=== PATIENT | female | born 1960 | race Caucasian/White ===

== ENCOUNTER 2018-10-17 16:41 | Inpatient (IN) | payer MEDICAID ==
[~2018-10-17] VITALS: Ht 154.9 cm; Wt 63.2 kg
--- NOTE | 2018-10-17 18:30 | NUR ---
PATIENTS JERRELL FOR CONTACT # LUDA IRIZARRY [phone]
[2018-10-17 18:45] LABS: BASOPHILS # (AUTO) 0.1 X10'3 (0-0.2); BASOPHILS % (AUTO) 0.9 % (0-1); EOSINOPHILS # (AUTO) 0.1 X10'3 (0-0.9); EOSINOPHILS % (AUTO) 1.8 % (0-6); HEMATOCRIT 37.5 % (35.0-45.0); HEMOGLOBIN 11.8 g/dl (12.0-16.0); LYMPHOCYTES # (AUTO) 0.7 X10'3 (1.1-4.8); LYMPHOCYTES % (AUTO) 8.8 % (21-51); MEAN CORPUSCULAR HEMOGLOBIN 28.4 PG (27.0-31.0); MEAN CORPUSCULAR HGB CONC 31.5 g/dL (33.0-36.5); MEAN CORPUSCULAR VOLUME 90.3 FL (78-98); MEAN PLATELET VOLUME 8.7 FL (7.4-10.4); MONOCYTES # (AUTO) 0.7 X10'3 (0-0.9); MONOCYTES % (AUTO) 9.6 % (2-12); NEUTROPHILS # (AUTO) 6.1 X10'3 (1.8-7.7); NEUTROPHILS % (AUTO) 78.9 % (42-75); PLATELET COUNT 214 X10'3 (140-440); RED BLOOD COUNT 4.15 X10'6 (4.20-5.60); WHITE BLOOD COUNT 7.7 X10'3 (4.5-11.0)
[2018-10-17 18:49] LABS: ALANINE AMINOTRANSFERASE 33 U/L (12-78); ALBUMIN 2.8 G/DL (3.4-5.0); ALBUMIN/GLOBULIN RATIO 0.8 (1.1-1.5); ALKALINE PHOSPHATASE 157 IU/L (46-116); ANION GAP 5 (8-16); ASPARTATE AMINO TRANSFERASE 29 U/L (10-37); BILIRUBIN,TOTAL 0.4 MG/DL (0.1-1.0); BLOOD UREA NITROGEN 23 MG/DL (7-18); BUN/CREATININE RATIO 29.1 (6.6-38.0); CALCIUM 8.3 MG/DL (8.5-10.1); CHLORIDE 105 MMOL/L (99-107); CREATININE 0.79 MG/DL (0.40-0.90); GLUCOSE 103 MG/DL (70-104); POTASSIUM 3.6 MMOL/L (3.5-5.1); SODIUM 137 MMOL/L (135-145); TOTAL CARBON DIOXIDE 26.9 MMOL/L (24-32); TOTAL PROTEIN 6.5 G/DL (6.4-8.2); eGFR 75 ML/MIN
[2018-10-17] MEDS ORDERED: SIMV20TA5 PO (18:57)
[2018-10-17] MEDS ORDERED: HYDR-3927 PO (18:57)
[2018-10-17] MEDS ORDERED: CARV3.122 PO (18:57)
[2018-10-17] MEDS ORDERED: DIPH-681 PO ×2 (18:57)
[2018-10-17] MEDS ORDERED: TOP100T PO (18:57)
[2018-10-17] MEDS ORDERED: FURO-150 PO (18:57)
[2018-10-17] MEDS ORDERED: COU5T PO (18:57)
[2018-10-17] MEDS ORDERED: iohexol 350MG/ML 100ml bottle IV ONE (19:01)
[2018-10-17 19:03] LABS: INR 1.2 INR; PARTIAL THROMBOPLASTIN TIME 28 SECONDS (22-32)
[2018-10-17] MEDS ORDERED: ondansetron/PF 4mg/2ml inj IV ONE (19:20)
[2018-10-17 19:49] LABS: ANISOCYTOSIS 2+; PLATELET ESTIMATE NORMAL
[2018-10-17] MEDS ORDERED: aspirin 81mg tab.chew PO ONE (20:30)
[2018-10-17] MEDS ORDERED: diphenhydrAMINE 50 mg/ml inj IV ONE (20:30)
[2018-10-17] MEDS ORDERED: warfarin 5mg tablet PO ONE (21:00)
[2018-10-17] MEDS ORDERED: Melatonin 3mg tablet PO PRN (22:55)
[2018-10-17] MEDS ORDERED: magnesium hydroxide 30ml (MOM) UD suspension PO PRN (22:55)
[2018-10-17] MEDS ORDERED: mag hydrox/Alum hydrox/simeth 30ml oral suspension PO PRN (22:55)
[2018-10-17] MEDS ORDERED: acetaminophen 325mg tablet PO PRN (22:55)
[2018-10-17] MEDS ORDERED: diphenhydrAMINE 25mg capsule PO PRN (23:05)
--- NOTE | 2018-10-17 23:17 | NUR ---
CALLED LUDA LET HER KNOW HER AUNT WILL BE ADMITTED
[2018-10-17] MEDS: atorvastatin 10mg tablet PO SCH (23:44)
[2018-10-17] MEDS: enoxaparin 60mg/0.6ml syringe SUBCUT SCH (23:45)
[2018-10-17] MEDS: furosemide 10 MG/1 ML 10ml inj IV SCH (23:57)
[2018-10-18 00:08] LABS: CHOL/HDL RATIO 2.8 (0.00-4.99); CHOLESTEROL 151 MG/DL (0-200); HDL CHOLESTEROL 53 MG/DL (35-60); LDL CHOLESTEROL 90 MG/DL (50-100); TRIGLYCERIDES 78 MG/DL (20-135)
[2018-10-18 00:36] LABS: URINE AMPHETAMINE SCREEN NEGATIVE (Neg); URINE BARBITUATE SCREEN NEGATIVE (Neg); URINE BENZODIAZEPINES SCREEN NEGATIVE (Neg); URINE CANNABINOID SCREEN NEGATIVE (Neg); URINE COCAINE SCREEN NEGATIVE (Neg); URINE METHADONE SCREEN NEGATIVE (Neg); URINE OPIATE SCREEN NEGATIVE (Neg); URINE PHENCYCLIDINE SCREEN NEGATIVE (Neg)
[2018-10-18 00:42] LABS: CLARITY,URINE CLEAR (Clear); COLOR,URINE YELLOW (Yellow); GLUCOSE, URINE NEGATIVE (Neg); KETONES,URINE NEGATIVE (Neg); LEUKOCYTE ESTERASE ,URINE NEGATIVE (Neg); NITRITES, URINE NEGATIVE (Neg); OCCULT BLOOD,URINE TRACE-LYSED (Neg); PROTEIN,URINE 100 mg/dl (Neg)
[2018-10-18 00:46] LABS: UA COLLECTION TYPE CLN CATCH MIDSTREAM
[2018-10-18 00:54] LABS: BACTERIA,URINE FEW /HPF (Neg); RBC,URINE 0-2 /HPF (0-2); SQUAMOUS EPITHELIAL CELL,UR FEW /LPF (FEW); WBC,URINE 0-4 /HPF (0-4)
--- NOTE | 2018-10-18 03:00 | NUR ---
PATIENT PLACED ON A HOSPITAL BED
[2018-10-18 06:00] VITALS: BP 121/80
--- NOTE | 2018-10-18 06:30 | NUR ---
Patient in room . I have received report from Tayla REYNA and had the opportunity to ask questions and assume patient care.
[2018-10-18 06:38] LABS: ALBUMIN 2.9 G/DL (3.4-5.0); ANION GAP 11 (8-16); BLOOD UREA NITROGEN 25 MG/DL (7-18); BUN/CREATININE RATIO 30.5 (6.6-38.0); CALCIUM 8.8 MG/DL (8.5-10.1); CHLORIDE 104 MMOL/L (99-107); CREATININE 0.82 MG/DL (0.40-0.90); GLUCOSE 79 MG/DL (70-104); SODIUM 138 MMOL/L (135-145); TOTAL CARBON DIOXIDE 23.3 MMOL/L (24-32); eGFR 72 ML/MIN
[2018-10-18 06:39] LABS: POTASSIUM 4.6 MMOL/L (3.5-5.1)
[2018-10-18 06:43] LABS: BASOPHILS # (AUTO) 0.1 X10'3 (0-0.2); BASOPHILS % (AUTO) 0.6 % (0-1); EOSINOPHILS # (AUTO) 0.1 X10'3 (0-0.9); EOSINOPHILS % (AUTO) 0.7 % (0-6); HEMATOCRIT 41.5 % (35.0-45.0); HEMOGLOBIN 12.8 g/dl (12.0-16.0); LYMPHOCYTES # (AUTO) 0.5 X10'3 (1.1-4.8); LYMPHOCYTES % (AUTO) 5.5 % (21-51); MEAN CORPUSCULAR HEMOGLOBIN 28.8 PG (27.0-31.0); MEAN CORPUSCULAR HGB CONC 30.8 g/dL (33.0-36.5); MEAN CORPUSCULAR VOLUME 93.5 FL (78-98); MEAN PLATELET VOLUME 8.5 FL (7.4-10.4); MONOCYTES # (AUTO) 0.8 X10'3 (0-0.9); MONOCYTES % (AUTO) 8.6 % (2-12); NEUTROPHILS # (AUTO) 7.8 X10'3 (1.8-7.7); NEUTROPHILS % (AUTO) 84.6 % (42-75); PLATELET COUNT 224 X10'3 (140-440); RED BLOOD COUNT 4.44 X10'6 (4.20-5.60); RED CELL DISTRIBUTION WIDTH 19.4 % (11.5-14.5); WHITE BLOOD COUNT 9.2 X10'3 (4.5-11.0)
[2018-10-18 07:02] LABS: ANISOCYTOSIS 2+; PLATELET ESTIMATE NORMAL; SPHEROCYTES FEW
[2018-10-18 07:04] LABS: INR 1.3 INR
[2018-10-18] MEDS: carVEDilol 3.125mg tablet PO SCH ×2 (08:47→20:40)
[2018-10-18] MEDS: furosemide 10 MG/1 ML 10ml inj IV SCH ×4 (08:47→23:57)
[2018-10-18] MEDS: topiramate 100mg tablet PO SCH ×2 (08:47→20:40)
[2018-10-18] MEDS: aspirin 81mg tablet.DR PO SCH (08:48)
[2018-10-18] MEDS: enoxaparin 60mg/0.6ml syringe SUBCUT SCH ×2 (08:48→20:42)
[2018-10-18 11:00] VITALS: BP 92/60
[2018-10-18] MEDS: ondansetron/PF 4mg/2ml inj IV PRN (12:57)
[2018-10-18 15:00] VITALS: BP 97/60
[2018-10-18] MEDS: HYDROcodone/acetaminophen 5mg/325mg tablet PO PRN (16:40)
--- NOTE | 2018-10-18 18:15 | NUR ---
Problems reprioritized. Patient report given, questions answered & plan of care reviewed with Pat RN.
[2018-10-18 19:00] VITALS: BP 116/84
[2018-10-18] MEDS: atorvastatin 10mg tablet PO SCH (20:40)
[2018-10-18] MEDS: acetaminophen 325mg tablet PO PRN (20:48)
[2018-10-18] MEDS ORDERED: warfarin 5mg tablet PO ONE (21:00)
[2018-10-18 23:00] VITALS: BP 106/76
[2018-10-19] MEDS: ondansetron/PF 4mg/2ml inj IV PRN ×2 (02:08→11:48)
[2018-10-19 03:00] VITALS: BP 107/74
[2018-10-19] MEDS: hydrOXYzine 25 MG tablet PO PRN ×3 (05:42→23:28)
--- NOTE | 2018-10-19 06:20 | NUR ---
Patient in room PCU 3021. I have received report from Cande RN and had the opportunity to ask questions and assume patient care.
[2018-10-19 07:00] VITALS: BP 85/65
[2018-10-19] MEDS: carVEDilol 3.125mg tablet PO SCH ×2 (08:00→20:12)
[2018-10-19] MEDS: topiramate 100mg tablet PO SCH ×2 (08:20→20:12)
[2018-10-19] MEDS: aspirin 81mg tablet.DR PO SCH (08:20)
[2018-10-19] MEDS: enoxaparin 60mg/0.6ml syringe SUBCUT SCH ×2 (08:20→20:13)
[2018-10-19] MEDS: furosemide 10 MG/1 ML 10ml inj IV SCH (09:46)
[2018-10-19] MEDS: HYDROcodone/acetaminophen 5mg/325mg tablet PO PRN ×2 (09:47→23:31)
[2018-10-19 10:42] LABS: BASOPHILS # (AUTO) 0.1 X10'3 (0-0.2); BASOPHILS % (AUTO) 0.5 % (0-1); EOSINOPHILS % (AUTO) 0.1 % (0-6); HEMOGLOBIN 13.5 g/dl (12.0-16.0); LYMPHOCYTES # (AUTO) 0.5 X10'3 (1.1-4.8); MEAN CORPUSCULAR HEMOGLOBIN 29.2 PG (27.0-31.0); MEAN CORPUSCULAR HGB CONC 30.7 g/dL (33.0-36.5); MEAN CORPUSCULAR VOLUME 95.1 FL (78-98); MONOCYTES % (AUTO) 8.8 % (2-12); NEUTROPHILS # (AUTO) 9.4 X10'3 (1.8-7.7); NEUTROPHILS % (AUTO) 85.6 % (42-75); PLATELET COUNT 238 X10'3 (140-440); RED BLOOD COUNT 4.63 X10'6 (4.20-5.60); RED CELL DISTRIBUTION WIDTH 19.4 % (11.5-14.5); WHITE BLOOD COUNT 10.9 X10'3 (4.5-11.0)
[2018-10-19 10:55] LABS: ANION GAP 12 (8-16); BLOOD UREA NITROGEN 40 MG/DL (7-18); BUN/CREATININE RATIO 19.1 (6.6-38.0); CALCIUM 8.6 MG/DL (8.5-10.1); CHLORIDE 99 MMOL/L (99-107); CREATININE 2.09 MG/DL (0.40-0.90); GLUCOSE 125 MG/DL (70-104); POTASSIUM 5.5 MMOL/L (3.5-5.1); SODIUM 133 MMOL/L (135-145); TOTAL CARBON DIOXIDE 22.2 MMOL/L (24-32); eGFR 24 ML/MIN
[2018-10-19 11:00] VITALS: BP 91/62
[2018-10-19 11:31] LABS: ANISOCYTOSIS 2+; PLATELET ESTIMATE NORMAL
[2018-10-19 11:32] LABS: ELLIPTOCYTES FEW
[2018-10-19 11:33] LABS: POLYCHROMASIA FEW; SPHEROCYTES FEW
[2018-10-19 11:59] LABS: INR 2.3 INR
--- NOTE | 2018-10-19 12:18 | NUR ---
PAGER ID: [phone] MESSAGE: RE: Jia Ferguson [id number]. Pt labs were drawn late this morning today. K: 5.5 Na: 133 BUN: 40 Creatinine: 2.09 -[facility] #[id number] Dr. Benitez paged regarding Pts labs.
[2018-10-19] MEDS ORDERED: sodium polystyrene sulfonate 15gm/60ml oral suspension PO ONE (12:25)
--- NOTE | 2018-10-19 13:10 | NUR ---
PAGER ID: [phone] MESSAGE: RE: Jia Ferguson, [id number]. Pt is refusing Kayexalate. -[facility] #5731 Dr. Benitez paged concerning Pts refusal of Kayexalate
[2018-10-19] MEDS: methylPREDNISolone sod succ 125mg/2ml vial IV SCH ×2 (14:59→20:12)
[2018-10-19 15:00] VITALS: BP 94/71
[2018-10-19] MEDS: ipratropium/albuterol 3ml nebule NEB SCH ×3 (16:11→23:20)
--- NOTE | 2018-10-19 16:19 | NUR ---
checked patient before svn tx spo2 was 64% on rm air put patient on 3lpm o2 and went up to 88%spo2 Addendum: 10/19/18 at 1627 by Taniya Dyer RT Amended: Links added.
[2018-10-19 18:00] VITALS: BP 120/83
--- NOTE | 2018-10-19 18:25 | NUR ---
Problems reprioritized. Patient report given, questions answered & plan of care reviewed with Amina REYNA .
--- NOTE | 2018-10-19 18:30 | NUR ---
Patient in room PCU 3021. I have received report from ruslan Armenta and had the opportunity to ask questions and assume patient care.
[2018-10-19] MEDS: furosemide 20 MG/2 ML vial IV SCH (20:12)
[2018-10-19] MEDS: atorvastatin 10mg tablet PO SCH (20:12)
--- NOTE | 2018-10-19 20:30 | NUR ---
pt requested pain med. when i get ready for med and came back to pt. pt told me she has no pain and no need for pain med. i returned norco. continue to monitor.
[2018-10-19 22:00] VITALS: BP 116/84
--- NOTE | 2018-10-19 23:07 | NUR ---
bladder scan showed 131cc. pt no urge to void. continue to monitor.
[2018-10-20] VITALS (22 sets, daily range): BP systolic 82–127; BP diastolic 52–84
[2018-10-20] MEDS: ipratropium/albuterol 3ml nebule NEB SCH ×6 (02:47→23:01)
--- NOTE | 2018-10-20 04:00 | NUR ---
bladder Addendum: 10/20/18 at 0442 by Amina Moreland RN bladder scan showed 222cc
--- NOTE | 2018-10-20 04:31 | NUR ---
pt wanted to void so i helped
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
--- NOTE | 2018-10-20 06:15 | NUR ---
Patient in room PCU 3021. I have received report from Amina REYNA and had the opportunity to ask questions and assume patient care.
--- NOTE | 2018-10-20 06:30 | NUR ---
Patient in room PCU 3021. I have received report from ruslan Armenta and had the opportunity to ask questions and assume patient care.
[2018-10-20] MEDS: aspirin 81mg tablet.DR PO SCH (08:00)
[2018-10-20] MEDS: carVEDilol 3.125mg tablet PO SCH ×2 (08:00→20:00)
[2018-10-20] MEDS ORDERED: levetiracetam inj 1,000 MG in normal saline 100ml IV soln 90 ML IV STA (09:15)
[2018-10-20 09:19] LABS: BASOPHILS # (AUTO) 0.1 X10'3 (0-0.2); BASOPHILS % (AUTO) 0.5 % (0-1); EOSINOPHILS % (AUTO) 0.1 % (0-6); HEMATOCRIT 43.9 % (35.0-45.0); HEMOGLOBIN 13.3 g/dl (12.0-16.0); LYMPHOCYTES # (AUTO) 0.6 X10'3 (1.1-4.8); LYMPHOCYTES % (AUTO) 4.4 % (21-51); MEAN CORPUSCULAR HEMOGLOBIN 28.9 PG (27.0-31.0); MEAN CORPUSCULAR HGB CONC 30.3 g/dL (33.0-36.5); MEAN CORPUSCULAR VOLUME 95.2 FL (78-98); MEAN PLATELET VOLUME 9.4 FL (7.4-10.4); MONOCYTES # (AUTO) 0.6 X10'3 (0-0.9); MONOCYTES % (AUTO) 4.4 % (2-12); NEUTROPHILS # (AUTO) 11.6 X10'3 (1.8-7.7); NEUTROPHILS % (AUTO) 90.6 % (42-75); PLATELET COUNT 236 X10'3 (140-440); RED BLOOD COUNT 4.61 X10'6 (4.20-5.60); RED CELL DISTRIBUTION WIDTH 19.5 % (11.5-14.5); WHITE BLOOD COUNT 12.8 X10'3 (4.5-11.0)
[2018-10-20] MEDS ORDERED: LORazepam 2 mg/ml vial ONE (09:19)
[2018-10-20 09:26] LABS: ABG BASE EXCESS -10.1 mmol/L (-2.0-3.0); ABG HCO3 20.1 mmol/L (22.0-26.0); ABG OXYGEN SATURATION 91.9 % (95-98); ABG PCO2 (T) 63.4 mmHg (32.0-45.0); ABG PH (T) 7.118 (7.350-7.450); ABG PO2 (T) 76.9 mmHg (83-108); ALLEN'S TEST Positive; FCOHb 0.4 % (0.5-1.5); FLOW 6 L/min; FMetHb 0.3 % (0.3-1.12); FO2Hb 91.3 % (94-100); RESPIRATORY RATE (OBSERVED) 20 b/min
[2018-10-20 09:28] LABS: ALBUMIN 3.1 G/DL (3.4-5.0); ANION GAP 9 (8-16); BLOOD UREA NITROGEN 56 MG/DL (7-18); BUN/CREATININE RATIO 20.1 (6.6-38.0); CALCIUM 7.9 MG/DL (8.5-10.1); CHLORIDE 96 MMOL/L (99-107); CREATININE 2.78 MG/DL (0.40-0.90); GLUCOSE 109 MG/DL (70-104); SODIUM 130 MMOL/L (135-145); TOTAL CARBON DIOXIDE 25.2 MMOL/L (24-32); eGFR 18 ML/MIN
[2018-10-20 09:32] LABS: POTASSIUM 6.2 MMOL/L (3.5-5.1)
--- NOTE | 2018-10-20 09:50 | NUR ---
Patient arrived to ICU room 2038. Bedside report received. Patient was a rapid response because of prolonged seizure and cyanosis. Patient difficult to awaken. Placed on BiPap.
[2018-10-20] MEDS ORDERED: dextrose 50%-water 50ml dispensing syringe IV ONE (09:55)
[2018-10-20] MEDS ORDERED: insulin regular, human 10 units/0.1 ml syringe IV ONE (09:55)
[2018-10-20] MEDS ORDERED: sodium bicarbonate (8.4%) 1 mEq/ml syringe IV ONE (09:55)
[2018-10-20] MEDS ORDERED: calcium gluconate inj. 1 GM in normal saline 100ml IV soln 90 ML IV ONE (09:55)
[2018-10-20] MEDS ORDERED: sodium polystyrene sulfonate 15gm/60ml oral suspension PO ONE (09:55)
[2018-10-20] MEDS: furosemide 20 MG/2 ML vial IV SCH (10:01)
[2018-10-20 10:12] LABS: INR > 9.0 INR
--- NOTE | 2018-10-20 10:25 | NUR ---
Patient decline SP02 now consistently low 80's, unable to arouse pt MD notified-> emergently intubated CVL placed for low BP and poor IV access
[2018-10-20] MEDS ORDERED: fentaNYL/PF 50MCG/1 ML 2ML syringe IV PRN (10:30)
[2018-10-20] MEDS ORDERED: FENTANYL-0.9 % NACL/PF 100 ML IV PRN (10:30)
[2018-10-20] MEDS ORDERED: NORepinephrine 8mg/ 250ml NS 250 ML IV ONE (10:42)
[2018-10-20 10:58] LABS: CREATINE KINASE 250 U/L (26-192)
[2018-10-20 11:15] LABS: PLATELET ESTIMATE NORMAL
[2018-10-20] MEDS: methylPREDNISolone sod succ 125mg/2ml vial IV SCH ×2 (11:15→20:33)
[2018-10-20 11:16] LABS: ELLIPTOCYTES FEW; POLYCHROMASIA FEW; SCHISTOCYTES FEW
[2018-10-20 11:19] LABS: HYPOCHROMASIA 1+; SPHEROCYTES FEW
[2018-10-20] MEDS: FENTANYL 1000MCG/NS 100 ML BAG /PF IV PRN (12:05)
[2018-10-20] MEDS: midazolam 100mg in NS 100ml 100 ML IV PRN (12:06)
[2018-10-20] MEDS: topiramate 100mg tablet PO SCH ×2 (12:07→20:00)
[2018-10-20 12:50] LABS: ABG HCO3 18.7 mmol/L (22.0-26.0); ABG OXYGEN SATURATION 98.5 % (95-98); ABG PCO2 (T) 45.8 mmHg (32.0-45.0); ABG PH (T) 7.225 (7.350-7.450); ABG PO2 (T) 130.8 mmHg (83-108); ALLEN'S TEST Positive; FCOHb 0.4 % (0.5-1.5); FMetHb 0.1 % (0.3-1.12); MINUTE VOLUME 8 L/min; PATIENT TEMPERATURE 36.1; PEEP 5 cm H2O; RESPIRATORY RATE 20 b/min; RESPIRATORY RATE (OBSERVED) 20 b/min; TIDAL VOLUME 350 mL; TOTAL HEMOGLOBIN 12.6 G/dl (12.0-16.0)
[2018-10-20 14:29] LABS: ALBUMIN 2.6 G/DL (3.4-5.0); ALBUMIN/GLOBULIN RATIO 0.7 (1.1-1.5); ALKALINE PHOSPHATASE 207 IU/L (46-116); ANION GAP 11 (8-16); BILIRUBIN,TOTAL 1.4 MG/DL (0.1-1.0); BLOOD UREA NITROGEN 60 MG/DL (7-18); BUN/CREATININE RATIO 20.8 (6.6-38.0); CALCIUM 7.9 MG/DL (8.5-10.1); CHLORIDE 97 MMOL/L (99-107); CREATININE 2.88 MG/DL (0.40-0.90); GLUCOSE 134 MG/DL (70-104); POTASSIUM 5.1 MMOL/L (3.5-5.1); SODIUM 132 MMOL/L (135-145); TOTAL CARBON DIOXIDE 24.1 MMOL/L (24-32); TOTAL PROTEIN 6.1 G/DL (6.4-8.2); eGFR 17 ML/MIN
[2018-10-20 14:30] LABS: INR > 9.0 INR
[2018-10-20 14:31] LABS: ALANINE AMINOTRANSFERASE 1826 U/L (12-78); ASPARTATE AMINO TRANSFERASE 1950 U/L (10-37)
[2018-10-20] MEDS ORDERED: phytonadione inj. 5 MG in normal saline 100ml IV soln 99.5 ML IV ONE (14:45)
[2018-10-20 16:02] LABS: CREATINE KINASE 228 U/L (26-192)
--- NOTE | 2018-10-20 16:30 | NUR ---
Patient transported to CT and back. VS remained stable throughout
--- NOTE | 2018-10-20 18:30 | NUR ---
Patient in room ICU 2038. I have received report from Mirela REYNA and had the opportunity to ask questions and assume patient care.
--- NOTE | 2018-10-20 18:32 | NUR ---
Problems reprioritized. Patient report given, questions answered & plan of care reviewed with Dana REYNA.
--- NOTE | 2018-10-20 19:28 | NUR ---
technical producer called, Karla De Anda notified. EEG on hold until the AM for follow up with MD due to pt being on sedation and anti seizure medication.
[2018-10-20] MEDS: atorvastatin 10mg tablet PO SCH (20:33)
[2018-10-20 21:38] LABS: ALBUMIN/GLOBULIN RATIO 0.9 (1.1-1.5); ALKALINE PHOSPHATASE 195 IU/L (46-116); ANION GAP 12 (8-16); BILIRUBIN,TOTAL 1.3 MG/DL (0.1-1.0); BLOOD UREA NITROGEN 66 MG/DL (7-18); BUN/CREATININE RATIO 22.7 (6.6-38.0); CALCIUM 7.7 MG/DL (8.5-10.1); CHLORIDE 97 MMOL/L (99-107); CREATININE 2.91 MG/DL (0.40-0.90); GLUCOSE 140 MG/DL (70-104); POTASSIUM 5.4 MMOL/L (3.5-5.1); SODIUM 132 MMOL/L (135-145); TOTAL CARBON DIOXIDE 22.7 MMOL/L (24-32); TOTAL PROTEIN 6.3 G/DL (6.4-8.2); eGFR 17 ML/MIN
[2018-10-20 21:41] LABS: ASPARTATE AMINO TRANSFERASE 1462 U/L (10-37)
[2018-10-20 21:42] LABS: ALANINE AMINOTRANSFERASE 1674 U/L (12-78)
[2018-10-21] VITALS (24 sets, daily range): BP systolic 92–138; BP diastolic 54–78
[2018-10-21] MEDS ORDERED: NORepinephrine 8mg/ 250ml NS 250 ML IV ONE (02:05)
[2018-10-21] MEDS ORDERED: NORepinephrine 8mg/ 250ml NS 250 ML IV PRN (02:13)
[2018-10-21 02:50] LABS: BASOPHILS % (AUTO) 0.1 % (0-1); EOSINOPHILS % (AUTO) 0 % (0-6); HEMATOCRIT 35.7 % (35.0-45.0); HEMOGLOBIN 11.4 g/dl (12.0-16.0); LYMPHOCYTES # (AUTO) 0.5 X10'3 (1.1-4.8); LYMPHOCYTES % (AUTO) 4.3 % (21-51); MEAN CORPUSCULAR HEMOGLOBIN 28.9 PG (27.0-31.0); MEAN CORPUSCULAR VOLUME 90.1 FL (78-98); MEAN PLATELET VOLUME 9.3 FL (7.4-10.4); MONOCYTES # (AUTO) 0.4 X10'3 (0-0.9); MONOCYTES % (AUTO) 4.2 % (2-12); NEUTROPHILS # (AUTO) 9.7 X10'3 (1.8-7.7); NEUTROPHILS % (AUTO) 91.4 % (42-75); PLATELET COUNT 245 X10'3 (140-440); RED BLOOD COUNT 3.96 X10'6 (4.20-5.60); RED CELL DISTRIBUTION WIDTH 19.1 % (11.5-14.5); WHITE BLOOD COUNT 10.6 X10'3 (4.5-11.0)
[2018-10-21 02:56] LABS: INR 2.3 INR
--- NOTE | 2018-10-21 03:05 | NUR ---
Small skin tear noted on pt's R side of gluteal cream. Surrounding skin reddened but blanches. See chart for pictures, Hydrophillic dressing repositioned, Q2hr turns. Will continue to monitor.
[2018-10-21 03:07] LABS: NUCLEATED RED BLOOD CELLS 4 /100WBC (0-0); TOTAL CELLS COUNTED 100
[2018-10-21 03:08] LABS: ANISOCYTOSIS 2+; PLATELET ESTIMATE NORMAL
[2018-10-21 03:11] LABS: ALBUMIN 2.9 G/DL (3.4-5.0); ALBUMIN/GLOBULIN RATIO 0.8 (1.1-1.5); ALKALINE PHOSPHATASE 191 IU/L (46-116); ANION GAP 12 (8-16); BILIRUBIN,TOTAL 1.1 MG/DL (0.1-1.0); BLOOD UREA NITROGEN 68 MG/DL (7-18); BUN/CREATININE RATIO 23.9 (6.6-38.0); CALCIUM 7.4 MG/DL (8.5-10.1); CHLORIDE 96 MMOL/L (99-107); CREATININE 2.85 MG/DL (0.40-0.90); GLUCOSE 148 MG/DL (70-104); MAGNESIUM 2.2 MG/DL (1.5-2.4); PHOSPHORUS 6.5 MG/DL (2.3-4.5); POTASSIUM 5.6 MMOL/L (3.5-5.1); SODIUM 131 MMOL/L (135-145); TOTAL CARBON DIOXIDE 22.8 MMOL/L (24-32); TOTAL PROTEIN 6.4 G/DL (6.4-8.2); eGFR 17 ML/MIN
[2018-10-21 03:12] LABS: ALANINE AMINOTRANSFERASE 1763 U/L (12-78); ASPARTATE AMINO TRANSFERASE 1408 U/L (10-37)
[2018-10-21] MEDS: ipratropium/albuterol 3ml nebule NEB SCH ×6 (03:38→22:56)
[2018-10-21] MEDS ORDERED: insulin regular, human 10 units/0.1 ml syringe IV ONE (03:50)
[2018-10-21] MEDS ORDERED: calcium chloride 100 MG/1 ML inj IV ONE (03:50)
[2018-10-21] MEDS ORDERED: sodium bicarbonate (8.4%) 1 mEq/ml syringe IV ONE (03:50)
[2018-10-21] MEDS ORDERED: dextrose 50%-water 50ml dispensing syringe IV ONE (03:50)
[2018-10-21] MEDS ORDERED: albuterol 2.5 MG/3 ML nebule CONTNEB ONE (03:50)
[2018-10-21 04:05] LABS: ABG BASE EXCESS -4.2 mmol/L (-2.0-3.0); ABG OXYGEN SATURATION 89.1 % (95-98); ABG PCO2 (T) 45.5 mmHg (32.0-45.0); ABG PH (T) 7.305 (7.350-7.450); ABG PO2 (T) 65.1 mmHg (83-108); FCOHb 0.2 % (0.5-1.5); FMetHb 0.1 % (0.3-1.12); FO2Hb 88.8 % (94-100); MINUTE VOLUME 9 L/min; PATIENT TEMPERATURE 37.6; PEEP 5 cm H2O; RESPIRATORY RATE 24 b/min; RESPIRATORY RATE (OBSERVED) 24 b/min; TIDAL VOLUME 350 mL; TOTAL HEMOGLOBIN 12.7 G/dl (12.0-16.0)
--- NOTE | 2018-10-21 04:15 | NUR ---
AM labs reviewed, Herman updated, orders received. Titrating Levophed to keep MAP greater than 65.
[2018-10-21] MEDS: midazolam 100mg in NS 100ml 100 ML IV PRN (06:02)
--- NOTE | 2018-10-21 06:30 | NUR ---
Patient in room ICU 2038. I have received report from MARIBELL Cortez and had the opportunity to ask questions and assume patient care.
--- NOTE | 2018-10-21 06:31 | NUR ---
Problems reprioritized. Patient report given, questions answered & plan of care reviewed with [Isidra RENYA].
[2018-10-21] MEDS ORDERED: enoxaparin 60mg/0.6ml syringe SUBCUT SCH (08:00)
[2018-10-21] MEDS: methylPREDNISolone sod succ 125mg/2ml vial IV SCH ×2 (08:04→20:41)
[2018-10-21] MEDS: carVEDilol 3.125mg tablet PO SCH ×2 (08:04→19:26)
[2018-10-21] MEDS: topiramate 100mg tablet PO SCH ×2 (08:04→20:41)
[2018-10-21] MEDS: aspirin 81mg tablet.DR PO SCH (08:05)
[2018-10-21 08:10] LABS: ALBUMIN 2.7 G/DL (3.4-5.0); ANION GAP 11 (8-16); BLOOD UREA NITROGEN 72 MG/DL (7-18); BUN/CREATININE RATIO 25.6 (6.6-38.0); CALCIUM 7.7 MG/DL (8.5-10.1); CHLORIDE 98 MMOL/L (99-107); CREATININE 2.81 MG/DL (0.40-0.90); GLUCOSE 222 MG/DL (70-104); PHOSPHORUS 5.6 MG/DL (2.3-4.5); POTASSIUM 4.8 MMOL/L (3.5-5.1); SODIUM 132 MMOL/L (135-145); TOTAL CARBON DIOXIDE 23.5 MMOL/L (24-32); eGFR 17 ML/MIN
[2018-10-21] MEDS ORDERED: dextrose ORAL solution 15 GM/59 ML bottle PO PRN ×2 (08:25)
[2018-10-21] MEDS ORDERED: dextrose 50%-water 50ml dispensing syringe IV PRN ×2 (08:25)
[2018-10-21] MEDS: insulin regular, human vial - multi-dose SQ SCH ×3 (08:49→20:51)
[2018-10-21] MEDS ORDERED: pantoprazole 40mg Tablet.DR PO SCH (10:59)
--- NOTE | 2018-10-21 11:17 | NUR ---
TF consult: Pt currently intubated in the ICU. TF recommendations below calculated to meet 100% of patient's estimated nutrient needs. Pt admit with hyperkalemia, liver failure, JIMBO, acute resp failure. Renal and liver function starting to plateau and pt to get thoracentesis per MD notes. LBM 10/19. Will continue to follow. Recommend: 1. Continuous TF with Vital AF at 50 ml/hr will provide 1200 ml volume, 1440 kcal, 90 g protein, and 973 ml water. 2. Additional water flush 120 ml Q4H 3. Prealbumin Q Wednesday and 4. Daily weights 4. When extubated advance diet as medically indicated to heart healthy Addendum: 10/21/18 at [address] Amended: Links added.
[2018-10-21] MEDS: FENTANYL 1000MCG/NS 100 ML BAG /PF IV PRN (17:32)
--- NOTE | 2018-10-21 18:14 | NUR ---
Problems reprioritized. Patient report given, questions answered & plan of care reviewed with MARIBELL Bowman.
[2018-10-21] MEDS: atorvastatin 10mg tablet PO SCH (20:41)
[2018-10-21] MEDS: insulin glargine (Lantus) pen - multi-dose SQ SCH (20:52)
[2018-10-21] MEDS ORDERED: warfarin 1mg tablet PO ONE (21:00)
[2018-10-22] VITALS (24 sets, daily range): BP systolic 98–140; BP diastolic 57–92
[2018-10-22] MEDS: insulin regular, human vial - multi-dose SQ SCH ×3 (02:16→14:13)
[2018-10-22 02:48] LABS: BASOPHILS % (AUTO) 0.2 % (0-1); EOSINOPHILS % (AUTO) 0 % (0-6); HEMATOCRIT 30.9 % (35.0-45.0); LYMPHOCYTES # (AUTO) 0.1 X10'3 (1.1-4.8); LYMPHOCYTES % (AUTO) 1.4 % (21-51); MEAN CORPUSCULAR HEMOGLOBIN 28.8 PG (27.0-31.0); MEAN CORPUSCULAR HGB CONC 32.4 g/dL (33.0-36.5); MEAN CORPUSCULAR VOLUME 88.9 FL (78-98); MEAN PLATELET VOLUME 9.1 FL (7.4-10.4); MONOCYTES # (AUTO) 0.5 X10'3 (0-0.9); MONOCYTES % (AUTO) 4.5 % (2-12); NEUTROPHILS # (AUTO) 9.7 X10'3 (1.8-7.7); NEUTROPHILS % (AUTO) 93.9 % (42-75); PLATELET COUNT 156 X10'3 (140-440); RED BLOOD COUNT 3.47 X10'6 (4.20-5.60); RED CELL DISTRIBUTION WIDTH 19.3 % (11.5-14.5); WHITE BLOOD COUNT 10.3 X10'3 (4.5-11.0)
[2018-10-22 03:01] LABS: ALBUMIN 2.3 G/DL (3.4-5.0); ANION GAP 5 (8-16); BLOOD UREA NITROGEN 64 MG/DL (7-18); BUN/CREATININE RATIO 36.2 (6.6-38.0); CALCIUM 7.2 MG/DL (8.5-10.1); CHLORIDE 101 MMOL/L (99-107); CREATININE 1.77 MG/DL (0.40-0.90); GLUCOSE 222 MG/DL (70-104); SODIUM 134 MMOL/L (135-145); TOTAL CARBON DIOXIDE 27.9 MMOL/L (24-32); eGFR 30 ML/MIN
[2018-10-22 03:07] LABS: INR 1.4 INR
[2018-10-22] MEDS: ipratropium/albuterol 3ml nebule NEB SCH ×6 (03:13→22:27)
[2018-10-22 04:10] LABS: ABG BASE EXCESS 0.6 mmol/L (-2.0-3.0); ABG HCO3 25.8 mmol/L (22.0-26.0); ABG OXYGEN SATURATION 92.8 % (95-98); ABG PH (T) 7.394 (7.350-7.450); ABG PO2 (T) 67.7 mmHg (83-108); FCOHb 0.3 % (0.5-1.5); FMetHb 0.3 % (0.3-1.12); FO2Hb 92.2 % (94-100); MINUTE VOLUME 9 L/min; PATIENT TEMPERATURE 36.5; PEEP 5 cm H2O; RESPIRATORY RATE 24 b/min; RESPIRATORY RATE (OBSERVED) 24 b/min; TIDAL VOLUME 350 mL; TOTAL HEMOGLOBIN 11.2 G/dl (12.0-16.0)
[2018-10-22] MEDS: pantoprazole 40 MG vial IV SCH (07:46)
[2018-10-22] MEDS: topiramate 100mg tablet PO SCH ×2 (07:46→19:59)
[2018-10-22] MEDS: methylPREDNISolone sod succ 125mg/2ml vial IV SCH ×2 (07:46→19:59)
[2018-10-22] MEDS: carVEDilol 3.125mg tablet PO SCH ×2 (08:00→19:59)
[2018-10-22] MEDS ORDERED: 0.9 % SODIUM CHLORIDE 10 ML VIAL ONE (09:00)
[2018-10-22] MEDS ORDERED: etomidate 2mg/ml inj. ONE (09:00)
[2018-10-22] MEDS ORDERED: rocuronium 10mg/ml inj IV ONE (09:00)
--- NOTE | 2018-10-22 09:18 | NUR ---
Angio and MRI paged for thoracentesis and MRI of head
--- NOTE | 2018-10-22 09:35 | NUR ---
Per Dr. Pugh, he would like to trial the patient off of sedation before performing MRI. Also, INR 1.[address] Pugh, he would like to cancel the scheduled thoracentesis for Wednesday and resume Coumadin (pharmacy to dose); pleural effusions are not large enough per Dr. Pugh. Also, patient with 5 beat run of Vtach; pt's blood pressure asymptomatic. K 4.0; other electrolytes unknown; per MD, no new orders at this time. Mariah Ren "Leo," and Jannette at bedside; all questions answered. Next of Kin Trevon Aceves called to confirm that hospital staff can share information with family including the patient's sister Regi Cabrales.
[2018-10-22] MEDS ORDERED: mineral oil/petrolatum ophthal oint EACHEYE PRN (09:55)
[2018-10-22] MEDS: aspirin 81mg tab.chew PO SCH (10:43)
--- NOTE | 2018-10-22 10:49 | NUR ---
Patients's SBP in the 90s to 100s; Coreg held as patient has been recently off of Levophed
--- NOTE | 2018-10-22 13:02 | NUR ---
Patient moving all extremities including her right leg; femoral central line oozing due to frequent motion; per mat Calix to place knee immobilizer to protect the line. Patient unable to open eyes, squeeze hands, or follow any commands at this time.
--- NOTE | 2018-10-22 18:00 | NUR ---
Towards the end of the shift, patient becoming more aroused and moving all extremities and torso. Patient is now beginning to open eyes and is able to nod/shake her head to simple commands.
--- NOTE | 2018-10-22 18:35 | NUR ---
Problems reprioritized. Patient report given, questions answered & plan of care reviewed with Gracie REYNA.
[2018-10-22] MEDS: atorvastatin 10mg tablet PO SCH (19:59)
[2018-10-22] MEDS ORDERED: warfarin 3mg tablet PO ONE (21:00)
[2018-10-22] MEDS: insulin glargine (Lantus) pen - multi-dose SQ SCH (21:02)
[2018-10-23] VITALS (24 sets, daily range): BP systolic 90–144; BP diastolic 58–95
[2018-10-23 03:03] LABS: ALANINE AMINOTRANSFERASE 866 U/L (12-78); ALBUMIN 2.4 G/DL (3.4-5.0); ALBUMIN/GLOBULIN RATIO 0.8 (1.1-1.5); ALKALINE PHOSPHATASE 149 IU/L (46-116); ANION GAP 5 (8-16); ASPARTATE AMINO TRANSFERASE 243 U/L (10-37); BILIRUBIN,TOTAL 0.6 MG/DL (0.1-1.0); BLOOD UREA NITROGEN 41 MG/DL (7-18); BUN/CREATININE RATIO 46.1 (6.6-38.0); CHLORIDE 104 MMOL/L (99-107); CREATININE 0.89 MG/DL (0.40-0.90); GLUCOSE 101 MG/DL (70-104); MAGNESIUM 2.1 MG/DL (1.5-2.4); SODIUM 137 MMOL/L (135-145); TOTAL CARBON DIOXIDE 28.5 MMOL/L (24-32); TOTAL PROTEIN 5.6 G/DL (6.4-8.2); eGFR 65 ML/MIN
[2018-10-23 03:04] LABS: BASOPHILS % (AUTO) 0.1 % (0-1); EOSINOPHILS % (AUTO) 0 % (0-6); HEMATOCRIT 31.7 % (35.0-45.0); HEMOGLOBIN 10.2 g/dl (12.0-16.0); LYMPHOCYTES # (AUTO) 0.2 X10'3 (1.1-4.8); MEAN CORPUSCULAR HGB CONC 32.3 g/dL (33.0-36.5); MEAN CORPUSCULAR VOLUME 89.8 FL (78-98); MEAN PLATELET VOLUME 8.7 FL (7.4-10.4); MONOCYTES # (AUTO) 0.5 X10'3 (0-0.9); NEUTROPHILS # (AUTO) 9.5 X10'3 (1.8-7.7); NEUTROPHILS % (AUTO) 92.9 % (42-75); PLATELET COUNT 147 X10'3 (140-440); RED BLOOD COUNT 3.53 X10'6 (4.20-5.60); RED CELL DISTRIBUTION WIDTH 19.2 % (11.5-14.5); WHITE BLOOD COUNT 10.2 X10'3 (4.5-11.0)
[2018-10-23 03:29] LABS: INR 1.3 INR
[2018-10-23] MEDS: ipratropium/albuterol 3ml nebule NEB SCH ×6 (03:47→22:41)
[2018-10-23 04:10] LABS: ABG BASE EXCESS 3.1 mmol/L (-2.0-3.0); ABG HCO3 28.4 mmol/L (22.0-26.0); ABG OXYGEN SATURATION 92.7 % (95-98); ABG PH (T) 7.408 (7.350-7.450); ABG PO2 (T) 64.1 mmHg (83-108); ALLEN'S TEST Positive; FMetHb 0.3 % (0.3-1.12); FO2Hb 92.4 % (94-100); MINUTE VOLUME 6 L/min; PATIENT TEMPERATURE 36.8; PEEP 5 cm H2O; RESPIRATORY RATE 0 b/min; RESPIRATORY RATE (OBSERVED) 18 b/min; TOTAL HEMOGLOBIN 11.3 G/dl (12.0-16.0)
--- NOTE | 2018-10-23 06:37 | NUR ---
Patient in room ICU 2038. I have received report from Gracie REYNA and had the opportunity to ask questions and assume patient care. Addendum: 10/23/18 at 0637 by Reanna Alicia RN Amended: Links added.
[2018-10-23] MEDS: methylPREDNISolone sod succ 125mg/2ml vial IV SCH ×2 (07:31→20:21)
[2018-10-23] MEDS: carVEDilol 3.125mg tablet PO SCH ×2 (07:31→20:00)
[2018-10-23] MEDS: pantoprazole 40 MG vial IV SCH (07:31)
[2018-10-23] MEDS: topiramate 100mg tablet PO SCH ×2 (07:31→20:21)
[2018-10-23] MEDS: aspirin 81mg tab.chew PO SCH (07:32)
[2018-10-23] MEDS: insulin regular, human vial - multi-dose SQ SCH ×3 (08:12→20:47)
--- NOTE | 2018-10-23 08:25 | NUR ---
Pt's sedation was turned off at start of shift. Pt. very agitated. Not following commands. Pt. was shaking head and disconnected tubing from vent. Sedation back on.
--- NOTE | 2018-10-23 09:08 | NUR ---
Dr. Pugh stated to start Precedex on pt.
[2018-10-23] MEDS: dexmedetomidin/NS 400mcg/100ml 100 ML IV SCH ×2 (10:19→18:30)
--- NOTE | 2018-10-23 11:31 | NUR ---
Pt. agitated, continuosly scooting down the bed and sitting up. Precedex increased to max dose.
--- NOTE | 2018-10-23 13:55 | NUR ---
Nephew and his at bedside now.
--- NOTE | 2018-10-23 18:23 | NUR ---
Problems reprioritized. Patient report given, questions answered & plan of care reviewed with Liz REYNA. Addendum: 10/23/18 at 1824 by Reanna Alicia RN Amended: Links added.
--- NOTE | 2018-10-23 19:30 | NUR ---
Patient in room ICU 2038. I have received report from Reanna REYNA and had the opportunity to ask questions and assume patient care.
[2018-10-23] MEDS: atorvastatin 10mg tablet PO SCH (20:21)
[2018-10-23] MEDS: insulin glargine (Lantus) pen - multi-dose SQ SCH (20:48)
[2018-10-23] MEDS ORDERED: warfarin 4mg tablet PO ONE (21:00)
[2018-10-24] VITALS (21 sets, daily range): BP systolic 92–151; BP diastolic 59–84
[2018-10-24] MEDS: dexmedetomidin/NS 400mcg/100ml 100 ML IV SCH (02:24)
[2018-10-24] MEDS: ipratropium/albuterol 3ml nebule NEB SCH ×6 (03:08→23:02)
[2018-10-24 03:10] LABS: BASOPHILS % (AUTO) 0 % (0-1); EOSINOPHILS % (AUTO) 0 % (0-6); HEMOGLOBIN 11.5 g/dl (12.0-16.0); LYMPHOCYTES # (AUTO) 0.2 X10'3 (1.1-4.8); LYMPHOCYTES % (AUTO) 1.7 % (21-51); MEAN CORPUSCULAR HEMOGLOBIN 28.9 PG (27.0-31.0); MEAN CORPUSCULAR HGB CONC 31.9 g/dL (33.0-36.5); MEAN CORPUSCULAR VOLUME 90.6 FL (78-98); MEAN PLATELET VOLUME 8.9 FL (7.4-10.4); MONOCYTES # (AUTO) 0.5 X10'3 (0-0.9); MONOCYTES % (AUTO) 5.3 % (2-12); PLATELET COUNT 156 X10'3 (140-440); RED BLOOD COUNT 3.98 X10'6 (4.20-5.60); RED CELL DISTRIBUTION WIDTH 19.7 % (11.5-14.5); WHITE BLOOD COUNT 9.6 X10'3 (4.5-11.0)
[2018-10-24 03:17] LABS: ALANINE AMINOTRANSFERASE 662 U/L (12-78); ALBUMIN 2.2 G/DL (3.4-5.0); ALBUMIN/GLOBULIN RATIO 0.7 (1.1-1.5); ALKALINE PHOSPHATASE 133 IU/L (46-116); ANION GAP 4 (8-16); ASPARTATE AMINO TRANSFERASE 180 U/L (10-37); BILIRUBIN,TOTAL 0.6 MG/DL (0.1-1.0); BLOOD UREA NITROGEN 38 MG/DL (7-18); BUN/CREATININE RATIO 46.9 (6.6-38.0); CHLORIDE 105 MMOL/L (99-107); CREATININE 0.81 MG/DL (0.40-0.90); GLUCOSE 75 MG/DL (70-104); PHOSPHORUS 1.8 MG/DL (2.3-4.5); PREALBUMIN 14.4 MG/DL (19-36); SODIUM 138 MMOL/L (135-145); TOTAL CARBON DIOXIDE 28.6 MMOL/L (24-32); TOTAL PROTEIN 5.5 G/DL (6.4-8.2); eGFR 73 ML/MIN
[2018-10-24 03:24] LABS: INR 1.3 INR
[2018-10-24 03:25] LABS: ABG BASE EXCESS 1.6 mmol/L (-2.0-3.0); ABG HCO3 25.9 mmol/L (22.0-26.0); ABG OXYGEN SATURATION 91.8 % (95-98); ABG PCO2 (T) 40.2 mmHg (32.0-45.0); ABG PH (T) 7.428 (7.350-7.450); ALLEN'S TEST Positive; FCOHb 0.3 % (0.5-1.5); FMetHb 0.1 % (0.3-1.12); FO2Hb 91.4 % (94-100); MINUTE VOLUME 7 L/min; PATIENT TEMPERATURE 37.3; PEEP 5 cm H2O; RESPIRATORY RATE (OBSERVED) 25 b/min; TOTAL HEMOGLOBIN 12.6 G/dl (12.0-16.0)
--- NOTE | 2018-10-24 03:32 | NUR ---
Patient agitated and restless. Patient following commands and moving all extremities. Will continue to monitor patient.
--- NOTE | 2018-10-24 06:17 | NUR ---
Problems reprioritized. Patient report given, questions answered & plan of care reviewed with Reanna REYNA.
--- NOTE | 2018-10-24 06:36 | NUR ---
Patient in room ICU 2038. I have received report from Liz REYNA and had the opportunity to ask questions and assume patient care. Addendum: 10/24/18 at 0637 by Reanna Alicia RN Amended: Links added.
--- NOTE | 2018-10-24 06:55 | NUR ---
Pt. awake, alert and following commands.
[2018-10-24] MEDS: carVEDilol 3.125mg tablet PO SCH ×2 (07:18→20:37)
[2018-10-24] MEDS: HYDROcodone/acetaminophen 5mg/325mg tablet PO PRN ×3 (07:22→20:37)
[2018-10-24] MEDS: topiramate 100mg tablet PO SCH ×2 (07:22→20:37)
[2018-10-24] MEDS: methylPREDNISolone sod succ 125mg/2ml vial IV SCH ×2 (07:39→20:38)
[2018-10-24] MEDS: pantoprazole 40 MG vial IV SCH (07:39)
[2018-10-24] MEDS: insulin regular, human vial - multi-dose SQ SCH (08:16)
[2018-10-24] MEDS: aspirin 81mg tab.chew PO SCH (08:56)
--- NOTE | 2018-10-24 09:36 | NUR ---
Pt. restless despite Precedex at max dose. Pt. trying to talk around ETT. Pt. reassured.
--- NOTE | 2018-10-24 10:20 | NUR ---
Pt. extubated at 1015 without incident after passing weaning parameters and receiving an order to extubate.
[2018-10-24] MEDS: ondansetron/PF 4mg/2ml inj IV PRN ×2 (11:06→20:38)
[2018-10-24] MEDS: hydrOXYzine 25 MG tablet PO PRN ×2 (12:30→20:38)
[2018-10-24] MEDS ORDERED: insulin Lispro (HumaLOG) vial - multi-dose SQ SCH (12:39)
--- NOTE | 2018-10-24 13:36 | NUR ---
reassessment: Pt extubated pending diet advancement. LBM 5/ w/ no routine bowel care. Will need PO bowel care once PO diet resumes. Will monitor for ONS needs. Recommend: 1. advance diet as medically indicated to heart healthy 2. routine bowel care once PO 3. monitor for ONS needs 4. wt per rx Addendum: 10/24/18 at [address] Amended: Links added.
--- NOTE | 2018-10-24 14:49 | NUR ---
Pt. ambulated with physical therapy.
--- NOTE | 2018-10-24 16:09 | NUR ---
Speech eval done by Luisa speech therapist. Mechanical soft diet ordered for patient.
[2018-10-24] MEDS: atorvastatin 10mg tablet PO SCH (20:38)
[2018-10-24] MEDS ORDERED: warfarin 5mg tablet PO ONE (21:00)
[2018-10-24] MEDS: insulin glargine (Lantus) pen - multi-dose SQ SCH (21:00)
--- NOTE | 2018-10-24 23:04 | NUR ---
2300..Patient in room ICU 2038. I have received report from Teri REYNA and had the opportunity to ask questions and assume patient care.
[2018-10-25] VITALS (10 sets, daily range): BP systolic 96–156; BP diastolic 48–104
[2018-10-25] MEDS ORDERED: nitroGLYCERIN 0.4mg SUBLingual tab SL PRN (01:40)
--- NOTE | 2018-10-25 02:25 | NUR ---
[id number]..Complained of left wall chest pain, EKG with no changes. Herman STEAM GIGGER notified, orders received, and pain relief with ngt 0.4mg sl x2 doses.
[2018-10-25] MEDS: ipratropium/albuterol 3ml nebule NEB SCH ×6 (02:50→23:06)
--- NOTE | 2018-10-25 04:13 | NUR ---
0400..Resting quietly, offers no complaints, no changes noted.
--- NOTE | 2018-10-25 06:14 | NUR ---
0610..Problems reprioritized. Patient report given, questions answered & plan of care reviewed with Geovanna REYNA.
--- NOTE | 2018-10-25 06:18 | NUR ---
Patient in room ICU 2038. I have received report from Peace REYNA and had the opportunity to ask questions and assume patient care. Addendum: 10/25/18 at 0619 by Reanna Alicia RN Amended: Links added.
[2018-10-25] MEDS: HYDROcodone/acetaminophen 5mg/325mg tablet PO PRN ×4 (06:30→23:16)
[2018-10-25] MEDS: ondansetron/PF 4mg/2ml inj IV PRN ×3 (06:30→19:47)
[2018-10-25] MEDS: hydrOXYzine 25 MG tablet PO PRN ×2 (06:31→15:44)
[2018-10-25] MEDS: topiramate 100mg tablet PO SCH ×2 (07:21→20:29)
[2018-10-25] MEDS: carVEDilol 3.125mg tablet PO SCH ×2 (07:21→19:56)
[2018-10-25] MEDS: aspirin 81mg tab.chew PO SCH (07:21)
[2018-10-25] MEDS: pantoprazole 40mg Tablet.DR PO SCH (07:21)
[2018-10-25] MEDS: methylPREDNISolone sod succ 125mg/2ml vial IV SCH ×2 (07:21→19:47)
--- NOTE | 2018-10-25 08:00 | NUR ---
Lab here attempting to obtain am labs. Pt. is a difficult stick.
[2018-10-25 08:28] LABS: BASOPHILS % (AUTO) 0.3 % (0-1); EOSINOPHILS % (AUTO) 0 % (0-6); HEMOGLOBIN 11.6 g/dl (12.0-16.0); LYMPHOCYTES # (AUTO) 0.6 X10'3 (1.1-4.8); LYMPHOCYTES % (AUTO) 5.6 % (21-51); MEAN CORPUSCULAR HEMOGLOBIN 28.5 PG (27.0-31.0); MEAN CORPUSCULAR HGB CONC 31.5 g/dL (33.0-36.5); MEAN CORPUSCULAR VOLUME 90.7 FL (78-98); MEAN PLATELET VOLUME 8.6 FL (7.4-10.4); MONOCYTES # (AUTO) 0.8 X10'3 (0-0.9); NEUTROPHILS # (AUTO) 8.8 X10'3 (1.8-7.7); NEUTROPHILS % (AUTO) 86.1 % (42-75); PLATELET COUNT 173 X10'3 (140-440); RED BLOOD COUNT 4.08 X10'6 (4.20-5.60); RED CELL DISTRIBUTION WIDTH 19.6 % (11.5-14.5); WHITE BLOOD COUNT 10.2 X10'3 (4.5-11.0)
[2018-10-25 08:35] LABS: ALANINE AMINOTRANSFERASE 565 U/L (12-78); ALBUMIN 2.7 G/DL (3.4-5.0); ALBUMIN/GLOBULIN RATIO 0.8 (1.1-1.5); ALKALINE PHOSPHATASE 139 IU/L (46-116); ANION GAP 4 (8-16); ASPARTATE AMINO TRANSFERASE 116 U/L (10-37); BILIRUBIN,TOTAL 0.8 MG/DL (0.1-1.0); BLOOD UREA NITROGEN 32 MG/DL (7-18); BUN/CREATININE RATIO 33.7 (6.6-38.0); CALCIUM 8.3 MG/DL (8.5-10.1); CHLORIDE 104 MMOL/L (99-107); CREATININE 0.95 MG/DL (0.40-0.90); GLUCOSE 153 MG/DL (70-104); PHOSPHORUS 3.6 MG/DL (2.3-4.5); POTASSIUM 3.9 MMOL/L (3.5-5.1); SODIUM 138 MMOL/L (135-145); TOTAL CARBON DIOXIDE 29.7 MMOL/L (24-32); TOTAL PROTEIN 6.2 G/DL (6.4-8.2); TROPONIN I 0.05 NG/ML (0.0-0.05); eGFR 61 ML/MIN
[2018-10-25 09:09] LABS: INR 1.4 INR
[2018-10-25 09:30] LABS: PLATELET ESTIMATE NORMAL
[2018-10-25 09:31] LABS: ANISOCYTOSIS 2+; HYPOCHROMASIA 2+; POLYCHROMASIA 1+; SCHISTOCYTES FEW
--- NOTE | 2018-10-25 10:40 | NUR ---
RN called Dr. Story per Dr. Cortes's request. Dr. Story stated he will see pt. today. Pt. is waiting for a room on PCU.
--- NOTE | 2018-10-25 12:14 | NUR ---
Pt. to room 3024 A in stable condition with all belongings after giving report to Renita REYNA.
--- NOTE | 2018-10-25 12:28 | NUR ---
Received report from Reanna REYNA, patient admitted to room 6804E. Vitals stable, patient denies complaints, bed is low and locked with call light within reach. Will continue to monitor at this time.
--- NOTE | 2018-10-25 16:16 | NUR ---
promotional table spacer PAGER ID: [phone] MESSAGE: MARIBELL Quezada, ext [phone], [phone], Ferguson c/o excruciating pain, [place] 5 q4 only pain med, elevated
--- NOTE | 2018-10-25 18:14 | NUR ---
Problems reprioritized. Patient report given, questions answered & plan of care reviewed with Cecily REYNA and Hubert RN. Patient stable, verbalizes pain, at transfer of care.
--- NOTE | 2018-10-25 18:29 | NUR ---
Patient in room PCU 3023d. I have received report from Renita RN and Pilar RN and had the opportunity to ask questions and assume patient care. Patient awake for bedside report and stable at this time. Will continue to monitor closely.
[2018-10-25] MEDS: acetaminophen 325mg tablet PO PRN (18:51)
--- NOTE | 2018-10-25 19:09 | NUR ---
PAGER ID: [phone] MESSAGE: Hubert Manrique RN ext. [phone] Patient in 3024A pain uncontrolled with [place] 5 PRN q4hr. Last Hilham given 2 hours ago. Just Administered 650mg Tylenol for pain. Could we have alternative medication or increase the dose? Thank You!!
[2018-10-25] MEDS: morphine 2 MG/ML inj. syringe IV PRN (19:47)
[2018-10-25] MEDS: atorvastatin 10mg tablet PO SCH (20:30)
[2018-10-25] MEDS: insulin glargine (Lantus) pen - multi-dose SQ SCH (21:00)
[2018-10-25] MEDS ORDERED: warfarin 5mg tablet PO ONE (21:00)
--- NOTE | 2018-10-25 21:01 | NUR ---
Patient in room U 3024. I have received report from RN and had the opportunity to ask questions and assume patient care. Addendum: 10/25/18 at 2102 by Elis Hudson RN Amended: Links added.
[2018-10-25] MEDS: metoprolol succinate 25mg (24-HOUR) SR. Tablet PO SCH (21:04)
--- NOTE | 2018-10-25 21:19 | NUR ---
Problems reprioritized. Patient report given, questions answered & plan of care reviewed with MARIBELL MALONEY.
[2018-10-26] MEDS: hydrOXYzine 25 MG tablet PO PRN ×2 (00:54→16:33)
[2018-10-26] MEDS: morphine 2 MG/ML inj. syringe IV PRN ×2 (00:54→08:24)
[2018-10-26 02:58] VITALS: BP 122/82
[2018-10-26] MEDS: ipratropium/albuterol 3ml nebule NEB SCH ×6 (03:15→23:34)
[2018-10-26] MEDS: HYDROcodone/acetaminophen 5mg/325mg tablet PO PRN ×2 (05:27→11:27)
--- NOTE | 2018-10-26 06:10 | NUR ---
[place] documentation: I have reviewed and agree with all interventions, assessments performed and documented by Hubert REYNA. [place] Medication Administration: For this medication-pass time frame, all medication were reviewed, dispensed, administered and documented per hospital policy by Hubert REYNA.
--- NOTE | 2018-10-26 06:25 | NUR ---
Problems reprioritized. Patient report given, questions answered & plan of care reviewed with MARIBELL MENDEZ. Addendum: 10/26/18 at 1303 by Elis Hudson RN Amended: Links added.
--- NOTE | 2018-10-26 06:42 | NUR ---
Patient in room PCU 3016. I have received report from Mercy REYNA and had the opportunity to ask questions and assume patient care.
[2018-10-26 07:00] VITALS: BP 99/69
[2018-10-26 07:55] LABS: BASOPHILS % (AUTO) 0.1 % (0-1); EOSINOPHILS % (AUTO) 0.1 % (0-6); HEMATOCRIT 37.6 % (35.0-45.0); HEMOGLOBIN 11.7 g/dl (12.0-16.0); LYMPHOCYTES # (AUTO) 0.2 X10'3 (1.1-4.8); LYMPHOCYTES % (AUTO) 2.2 % (21-51); MEAN CORPUSCULAR HEMOGLOBIN 28.6 PG (27.0-31.0); MEAN CORPUSCULAR HGB CONC 31.2 g/dL (33.0-36.5); MEAN CORPUSCULAR VOLUME 91.7 FL (78-98); MEAN PLATELET VOLUME 8.6 FL (7.4-10.4); MONOCYTES # (AUTO) 0.5 X10'3 (0-0.9); MONOCYTES % (AUTO) 4.3 % (2-12); NEUTROPHILS # (AUTO) 10.3 X10'3 (1.8-7.7); NEUTROPHILS % (AUTO) 93.3 % (42-75); PLATELET COUNT 175 X10'3 (140-440); RED CELL DISTRIBUTION WIDTH 19.6 % (11.5-14.5); WHITE BLOOD COUNT 11.1 X10'3 (4.5-11.0)
[2018-10-26 08:03] LABS: ALANINE AMINOTRANSFERASE 442 U/L (12-78); ALBUMIN 2.5 G/DL (3.4-5.0); ALBUMIN/GLOBULIN RATIO 0.6 (1.1-1.5); ALKALINE PHOSPHATASE 125 IU/L (46-116); ANION GAP 5 (8-16); ASPARTATE AMINO TRANSFERASE 57 U/L (10-37); BILIRUBIN,TOTAL 0.7 MG/DL (0.1-1.0); BLOOD UREA NITROGEN 28 MG/DL (7-18); BUN/CREATININE RATIO 39.4 (6.6-38.0); CALCIUM 8.6 MG/DL (8.5-10.1); CHLORIDE 104 MMOL/L (99-107); CREATININE 0.71 MG/DL (0.40-0.90); GLUCOSE 127 MG/DL (70-104); INR 2.5 INR; MAGNESIUM 1.8 MG/DL (1.5-2.4); PHOSPHORUS 3.5 MG/DL (2.3-4.5); SODIUM 140 MMOL/L (135-145); TOTAL CARBON DIOXIDE 31.1 MMOL/L (24-32); TOTAL PROTEIN 6.4 G/DL (6.4-8.2); eGFR 85 ML/MIN
[2018-10-26 08:07] LABS: POTASSIUM 4.2 MMOL/L (3.5-5.1)
[2018-10-26] MEDS: methylPREDNISolone sod succ 125mg/2ml vial IV SCH ×2 (08:21→20:00)
[2018-10-26] MEDS: furosemide 40mg/4ml inj IV SCH ×2 (08:21→20:00)
[2018-10-26] MEDS: pantoprazole 40mg Tablet.DR PO SCH (08:22)
[2018-10-26] MEDS: metoprolol succinate 25mg (24-HOUR) SR. Tablet PO SCH (08:22)
[2018-10-26] MEDS: aspirin 81mg tab.chew PO SCH (08:22)
[2018-10-26] MEDS: lisinopril 10 MG tablet PO SCH (08:22)
[2018-10-26] MEDS: levetiracetam 250mg tablet PO SCH ×2 (08:22→20:00)
[2018-10-26] MEDS: topiramate 100mg tablet PO SCH ×2 (08:23→20:00)
[2018-10-26 10:17] LABS: NUCLEATED RED BLOOD CELLS 1 /100WBC (0-0); PLATELET ESTIMATE NORMAL; TOTAL CELLS COUNTED 100; TOXIC GRANULATION 1+
[2018-10-26 10:18] LABS: ELLIPTOCYTES FEW; POLYCHROMASIA FEW; SCHISTOCYTES FEW; SPHEROCYTES FEW
[2018-10-26 10:19] LABS: ANISOCYTOSIS 2+; HYPOCHROMASIA 2+; TOXIC VACUOLATION FEW
[2018-10-26] MEDS: piperacillin/tazo 3.375gm/50ml 50 ML IV SCH ×2 (11:28→16:13)
[2018-10-26 13:45] VITALS: BP 103/67
--- NOTE | 2018-10-26 13:48 | NUR ---
PAGER ID: [phone] MESSAGE: Marty Samaniego. Pt's family lives 2 hours away would like to know an estimated discharge date if possible. Jannette [phone]
[2018-10-26 15:00] VITALS: BP 83/51
[2018-10-26] MEDS: azithromycin 250mg tablet PO SCH (17:09)
--- NOTE | 2018-10-26 17:19 | NUR ---
PAGER ID: [phone] MESSAGE: Marty Samaniego. Calling a rapid response, patient BP is 74/51 and change in mentation , hard to arouse. Jannette [phone]
[2018-10-26] MEDS ORDERED: albumin (Human) 5% 250ml 250 ML IV STA (17:33)
[2018-10-26] MEDS ORDERED: albumin (Human) 5% 250ml 250 ML IV PRN (17:35)
[2018-10-26] MEDS ORDERED: normal saline 1000ml 1,000 ML IV STA (17:39)
[2018-10-26 17:50] LABS: ABG BASE EXCESS 0.6 mmol/L (-2.0-3.0); ABG HCO3 29.6 mmol/L (22.0-26.0); ABG OXYGEN SATURATION 91.4 % (95-98); ABG PCO2 (T) 70.5 mmHg (32.0-45.0); ABG PH (T) 7.241 (7.350-7.450); ABG PO2 (T) 63.6 mmHg (83-108); FLOW 3 L/min; FMetHb 0.3 % (0.3-1.12); FO2Hb 90.2 % (94-100); TOTAL HEMOGLOBIN 12.3 G/dl (12.0-16.0)
--- NOTE | 2018-10-26 17:56 | NUR ---
PAGER ID: [phone] MESSAGE: [id number]. ABG done ph 7.2, Pco2 70.5, Hco3 29.6 and pO2 is 63.6, RT is putting her on bipap
[2018-10-26] MEDS: ondansetron/PF 4mg/2ml inj IV PRN (17:57)
--- NOTE | 2018-10-26 18:04 | NUR ---
Called rapid respose due to hypotension and patient somnolent. was paged and rapid respose team responded. At this time patient was alert and said she was fine. Patient blood pressure remained hypotensive. Orders were obtained for bolus and ABG. Boluses were initiated and ABG was obtained. Patient remained on the unit and is currently being monitored for hypotension.
--- NOTE | 2018-10-26 18:40 | NUR ---
Problems reprioritized. Patient report given, questions answered & plan of care reviewed with Taniya REYNA. Patient stable and on bipap at transfer of care.
[2018-10-26 19:00] VITALS: BP 88/68
[2018-10-26] MEDS ORDERED: hyDROXYzine 50 mg/ml injection ***IM only IM ONE (19:45)
[2018-10-26] MEDS: lactobacillus rhamnosus 10,000 MMU CELLS/CAPSULE PO SCH (20:00)
[2018-10-26 20:35] LABS: ABG BASE EXCESS 1.2 mmol/L (-2.0-3.0); ABG HCO3 28.8 mmol/L (22.0-26.0); ABG OXYGEN SATURATION 93.5 % (95-98); ABG PCO2 (T) 60.5 mmHg (32.0-45.0); ABG PH (T) 7.295 (7.350-7.450); ABG PO2 (T) 66.8 mmHg (83-108); ALLEN'S TEST Positive; FMetHb 0.1 % (0.3-1.12); FO2Hb 92.5 % (94-100); MINUTE VOLUME 15 L/min; PATIENT TEMPERATURE 36.9; RESPIRATORY RATE 20 b/min; RESPIRATORY RATE (OBSERVED) 25 b/min; TOTAL HEMOGLOBIN 11.9 G/dl (12.0-16.0)
[2018-10-26] MEDS: insulin glargine (Lantus) pen - multi-dose SQ SCH (21:00)
[2018-10-26] MEDS: atorvastatin 10mg tablet PO SCH (21:47)
[2018-10-26 23:00] VITALS: BP 85/59
[2018-10-27] MEDS: piperacillin/tazo 3.375gm/50ml 50 ML IV SCH ×3 (00:39→17:48)
[2018-10-27 03:00] VITALS: BP 101/67
[2018-10-27] MEDS: ipratropium/albuterol 3ml nebule NEB SCH ×6 (03:01→23:11)
[2018-10-27] MEDS: HYDROcodone/acetaminophen 5mg/325mg tablet PO PRN (03:04)
[2018-10-27] MEDS: ondansetron/PF 4mg/2ml inj IV PRN (03:04)
[2018-10-27 06:00] VITALS: BP 91/60
--- NOTE | 2018-10-27 06:25 | NUR ---
Patient in room PCU 3023. I have received report from MARIBELL Monahan and had the opportunity to ask questions and assume patient care.
[2018-10-27] MEDS: lactobacillus rhamnosus 10,000 MMU CELLS/CAPSULE PO SCH ×2 (07:37→20:15)
[2018-10-27] MEDS: pantoprazole 40mg Tablet.DR PO SCH (07:38)
[2018-10-27] MEDS: topiramate 100mg tablet PO SCH ×2 (07:38→20:16)
[2018-10-27] MEDS: azithromycin 250mg tablet PO SCH (07:38)
[2018-10-27] MEDS: levetiracetam 250mg tablet PO SCH ×2 (07:39→20:16)
[2018-10-27] MEDS: methylPREDNISolone sod succ 125mg/2ml vial IV SCH ×2 (07:40→20:17)
[2018-10-27] MEDS: furosemide 40mg/4ml inj IV SCH ×2 (07:46→20:16)
[2018-10-27] MEDS: morphine 2 MG/ML inj. syringe IV PRN (07:47)
[2018-10-27] MEDS: lisinopril 10 MG tablet PO SCH (08:00)
[2018-10-27] MEDS: metoprolol succinate 25mg (24-HOUR) SR. Tablet PO SCH (08:00)
--- NOTE | 2018-10-27 09:00 | NUR ---
Called laboratory to find out if someone would come draw patient's 0300 labs, was told that they would send someone up.
[2018-10-27] MEDS: aspirin 81mg tab.chew PO SCH (09:11)
[2018-10-27 10:55] LABS: ABG BASE EXCESS -1.9 mmol/L (-2.0-3.0); ABG HCO3 25.8 mmol/L (22.0-26.0); ABG OXYGEN SATURATION 93.1 % (95-98); ABG PCO2 (T) 57.9 mmHg (32.0-45.0); ABG PH (T) 7.267 (7.350-7.450); ABG PO2 (T) 68.9 mmHg (83-108); ALLEN'S TEST Positive; FCOHb 0.5 % (0.5-1.5); FLOW 3 L/min; FMetHb 0.3 % (0.3-1.12); FO2Hb 92.4 % (94-100); TOTAL HEMOGLOBIN 11.7 G/dl (12.0-16.0)
[2018-10-27 11:00] VITALS: BP 96/76
--- NOTE | 2018-10-27 13:00 | NUR ---
Called lab again for update on when 0300 labs can be drawn, was told that laboratory asst is on lunch and will be told to come draw when they get back.
[2018-10-27 15:15] VITALS: BP 116/70
--- NOTE | 2018-10-27 15:49 | NUR ---
PAGER ID: [phone] MESSAGE: [id number] Cynthia Helm. Pt increasingly agitated, no change from Haldol earlier, pt yelling out, upsetting roommates. Ativan ineffective. Hydralizine ineffective for BP. Please advise. Larisa REYNA [phone]
[2018-10-27 16:00] LABS: BASOPHILS # (AUTO) 0.1 X10'3 (0-0.2); BASOPHILS % (AUTO) 0.6 % (0-1); EOSINOPHILS % (AUTO) 0.1 % (0-6); HEMATOCRIT 34.8 % (35.0-45.0); HEMOGLOBIN 10.9 g/dl (12.0-16.0); LYMPHOCYTES # (AUTO) 0.1 X10'3 (1.1-4.8); LYMPHOCYTES % (AUTO) 0.9 % (21-51); MEAN CORPUSCULAR HEMOGLOBIN 28.3 PG (27.0-31.0); MEAN CORPUSCULAR HGB CONC 31.3 g/dL (33.0-36.5); MEAN CORPUSCULAR VOLUME 90.5 FL (78-98); MEAN PLATELET VOLUME 8.7 FL (7.4-10.4); MONOCYTES # (AUTO) 0.6 X10'3 (0-0.9); MONOCYTES % (AUTO) 4.6 % (2-12); NEUTROPHILS # (AUTO) 12.9 X10'3 (1.8-7.7); NEUTROPHILS % (AUTO) 93.8 % (42-75); PLATELET COUNT 178 X10'3 (140-440); RED BLOOD COUNT 3.85 X10'6 (4.20-5.60); RED CELL DISTRIBUTION WIDTH 20.6 % (11.5-14.5); WHITE BLOOD COUNT 13.7 X10'3 (4.5-11.0)
--- NOTE | 2018-10-27 16:16 | NUR ---
Reassessment: Pt with CHF,Respiratory failure,COPD,Factor V laiden,H/O Meth abuse per MD notes. Pt s/p BSS on 10/24 with ARTS EDUCATION TEACHER recs [facility] soft ground meat d/t pt edentulous. Pt with fluctuations in PO intake with documented 25-50% and 75% PO intake at breakfast on 10/26; no documented PO intake for today. Attempted visit with pt at bedside however pt unavailable. Alternative write in menu and RD contact information left at patient's bedside to provide additional food options. LB 10/26. Will continue to follow. Recommend: 1. Continue with [facility] soft diet with advancement to heart healthy per ARTS EDUCATION TEACHER recs 2. routine bowel care 3. monitor for ONS needs 4. encourage PO intake 5. wt per rx Addendum: 10/27/18 at [address] Amended: Links added.
--- NOTE | 2018-10-27 16:19 | NUR ---
Extended PIV inserted to the left upper arm basilic vein x3 attempts using ultrasound. Mackenzie madison. Addendum: 10/27/18 at 1622 by Janice Bhardwaj RN Amended: Links added.
[2018-10-27 16:47] LABS: INR 3.8 INR
--- NOTE | 2018-10-27 16:49 | NUR ---
PAGER ID: [phone] MESSAGE: [id number] Milady Ferguson Critical INR 3.8. FYI. Larisa REYNA [phone]
[2018-10-27 17:15] LABS: TOTAL CELLS COUNTED 100
[2018-10-27 17:16] LABS: ANISOCYTOSIS 3+; IMMATURE CELLS 0 % (0-0); PLATELET ESTIMATE NORMAL
[2018-10-27 17:19] LABS: TOXIC GRANULATION 1+
[2018-10-27 17:20] LABS: PROMYELOCYTES % (MANUAL) 0 % (0-0)
[2018-10-27 17:22] LABS: ELLIPTOCYTES FEW; HYPOCHROMASIA 1+; TARGET CELLS FEW
[2018-10-27 17:23] LABS: SCHISTOCYTES FEW; SPHEROCYTES FEW
[2018-10-27] MEDS: acetaminophen 325mg tablet PO PRN (17:47)
--- NOTE | 2018-10-27 18:00 | NUR ---
Problems reprioritized. Patient report given, questions answered & plan of care reviewed with Pedro RN and Rinku RN.
[2018-10-27] MEDS ORDERED: phytonadione inj. 10 MG in normal saline 100ml IV soln 99 ML IV ONE (18:10)
[2018-10-27 19:00] VITALS: BP 116/70
[2018-10-27] MEDS: atorvastatin 10mg tablet PO SCH (20:16)
[2018-10-27] MEDS: insulin glargine (Lantus) pen - multi-dose SQ SCH (21:00)
[2018-10-27 23:00] VITALS: BP 113/84
[2018-10-28] VITALS (8 sets, daily range): BP systolic 95–127; BP diastolic 49–82
[2018-10-28] MEDS: ipratropium/albuterol 3ml nebule NEB SCH ×6 (02:33→23:30)
[2018-10-28] MEDS: piperacillin/tazo 3.375gm/50ml 50 ML IV SCH ×3 (03:35→16:27)
--- NOTE | 2018-10-28 06:00 | NUR ---
Patient in room PCU 3023. I have received report from Rinku RN and Pedro RN and had the opportunity to ask questions and assume patient care. Pt resting, BiPAP in place, pt denies complaint. Bed is low/locked/SRx2, call light in reach.
[2018-10-28 07:41] LABS: ABG BASE EXCESS 5.2 mmol/L (-2.0-3.0); ABG HCO3 31.9 mmol/L (22.0-26.0); ABG PCO2 (T) 57.4 mmHg (32.0-45.0); ABG PH (T) 7.363 (7.350-7.450); ABG PO2 (T) 60.7 mmHg (83-108); ALLEN'S TEST Positive; FCOHb 0.6 % (0.5-1.5); FLOW 3 L/min; FO2Hb 91.4 % (94-100); TOTAL HEMOGLOBIN 11.7 G/dl (12.0-16.0)
[2018-10-28] MEDS: metoprolol succinate 25mg (24-HOUR) SR. Tablet PO SCH (08:11)
[2018-10-28] MEDS: lactobacillus rhamnosus 10,000 MMU CELLS/CAPSULE PO SCH ×2 (08:12→21:50)
[2018-10-28] MEDS: pantoprazole 40mg Tablet.DR PO SCH (08:12)
[2018-10-28] MEDS: levetiracetam 250mg tablet PO SCH ×2 (08:12→21:48)
[2018-10-28] MEDS: lisinopril 10 MG tablet PO SCH (08:13)
[2018-10-28] MEDS: furosemide 40mg/4ml inj IV SCH ×2 (08:13→21:49)
[2018-10-28] MEDS: topiramate 100mg tablet PO SCH ×2 (08:13→21:49)
[2018-10-28] MEDS: aspirin 81mg tab.chew PO SCH (08:13)
[2018-10-28] MEDS: azithromycin 250mg tablet PO SCH (08:13)
[2018-10-28] MEDS: acetaminophen 325mg tablet PO PRN ×2 (08:15→23:07)
[2018-10-28] MEDS: methylPREDNISolone sod succ 125mg/2ml vial IV SCH ×2 (08:15→21:49)
[2018-10-28 08:40] LABS: BASOPHILS % (AUTO) 0.4 % (0-1); EOSINOPHILS % (AUTO) 0 % (0-6); HEMATOCRIT 34.2 % (35.0-45.0); HEMOGLOBIN 10.6 g/dl (12.0-16.0); LYMPHOCYTES # (AUTO) 0.9 X10'3 (1.1-4.8); LYMPHOCYTES % (AUTO) 7.9 % (21-51); MEAN CORPUSCULAR HEMOGLOBIN 28.5 PG (27.0-31.0); MEAN CORPUSCULAR HGB CONC 31.1 g/dL (33.0-36.5); MEAN CORPUSCULAR VOLUME 91.6 FL (78-98); MEAN PLATELET VOLUME 8.7 FL (7.4-10.4); MONOCYTES # (AUTO) 0.5 X10'3 (0-0.9); MONOCYTES % (AUTO) 4.3 % (2-12); NEUTROPHILS # (AUTO) 10.5 X10'3 (1.8-7.7); NEUTROPHILS % (AUTO) 87.4 % (42-75); PLATELET COUNT 188 X10'3 (140-440); RED BLOOD COUNT 3.73 X10'6 (4.20-5.60); RED CELL DISTRIBUTION WIDTH 19.5 % (11.5-14.5)
[2018-10-28 08:46] LABS: ALANINE AMINOTRANSFERASE 223 U/L (12-78); ALBUMIN 2.4 G/DL (3.4-5.0); ALBUMIN/GLOBULIN RATIO 0.7 (1.1-1.5); ALKALINE PHOSPHATASE 98 IU/L (46-116); ANION GAP 2 (8-16); ASPARTATE AMINO TRANSFERASE 21 U/L (10-37); BILIRUBIN,TOTAL 0.7 MG/DL (0.1-1.0); BLOOD UREA NITROGEN 26 MG/DL (7-18); BUN/CREATININE RATIO 29.5 (6.6-38.0); CALCIUM 8.4 MG/DL (8.5-10.1); CHLORIDE 103 MMOL/L (99-107); CREATININE 0.88 MG/DL (0.40-0.90); GLUCOSE 179 MG/DL (70-104); LACTATE DEHYDROGENASE 228 U/L (81-234); MAGNESIUM 1.7 MG/DL (1.5-2.4); PHOSPHORUS 2.9 MG/DL (2.3-4.5); POTASSIUM 3.7 MMOL/L (3.5-5.1); SODIUM 139 MMOL/L (135-145); TOTAL CARBON DIOXIDE 33.6 MMOL/L (24-32); eGFR 66 ML/MIN
[2018-10-28 09:07] LABS: ANISOCYTOSIS 2+; HYPOCHROMASIA 1+; PLATELET ESTIMATE NORMAL; POLYCHROMASIA 1+; TEAR DROP CELLS FEW
[2018-10-28 09:08] LABS: ELLIPTOCYTES 1+
[2018-10-28 09:15] LABS: INR 1.4 INR
[2018-10-28] MEDS ORDERED: LIDOcaine 1%/PF 5ML 10 MG/ML VIAL ONE (09:22)
--- NOTE | 2018-10-28 09:31 | NUR ---
Called pt's nephew, Leo, per her request to notify him of room change to 3016A and of thoracentesis at bedside now. Leo states no further questions and will call his aunt later today.
--- NOTE | 2018-10-28 10:30 | NUR ---
PAGER ID: [phone] MESSAGE: [id number] Milady Ferguson Pt c/o not able to move left leg, however able to move L foot/wiggle toes, has sensation, good cap refill. Larisa REYNA [id number]
--- NOTE | 2018-10-28 11:02 | NUR ---
Called radiology for stat CXR, they stated that someone will be right up.
[2018-10-28 11:03] LABS: GLUCOSE,BODY FLUID 185 MG/DL; LDH,BODY FLUID 111 U/L; TOTAL PROTEIN,BODY FLUID 2.1 G/DL
[2018-10-28 11:08] LABS: LYMPHOCYTES,BODY FLUID 16 %; MONOCYTES,BODY FLUID 9 %; NEUTROPHILS,BODY FLUID 75 %
[2018-10-28 11:10] LABS: BF MESOTHELIAL CELLS FEW; BF RBC COUNT 90 /CU MM; BF WBC COUNT 215 /CU MM (0-1000); BFAPPEAR CLEAR; BFCOLOR YELLOW; BFSOURCE RIGHT PLEURAL FLD; BFVOLUME 53 ML; PLEURAL FLUID PH 7.462 (7.63-7.65)
--- NOTE | 2018-10-28 12:10 | NUR ---
MD at bedside, discussing with pt plan of care, orders received for heparin drip per DVT protocol and resume coumadin with pharmacy to dose, also order for tylenol/codeine3 and temazepam for insomnia @ HS. Orders placed per MD order. Pharmacy notified.
[2018-10-28] MEDS ORDERED: temazepam 15mg capsule PO PRN (12:30)
[2018-10-28] MEDS ORDERED: heparin 10,000 units/1 ML INJ IV ONE (12:30)
[2018-10-28] MEDS ORDERED: heparin 10,000 units/1 ML INJ IV PRN (12:30)
[2018-10-28 13:39] LABS: CLARITY,URINE CLEAR (Clear); COLOR,URINE STRAW (Yellow); GLUCOSE, URINE NEGATIVE (Neg); KETONES,URINE NEGATIVE (Neg); LEUKOCYTE ESTERASE ,URINE NEGATIVE (Neg); NITRITES, URINE NEGATIVE (Neg); OCCULT BLOOD,URINE NEGATIVE (Neg); PROTEIN,URINE NEGATIVE (Neg); UROBILINOGEN,URINE 0.2 E.U/dL (0.2-1.0)
[2018-10-28 13:41] LABS: UA COLLECTION TYPE STRAIGHT CATH
[2018-10-28 13:49] LABS: PARTIAL THROMBOPLASTIN TIME 34 SECONDS (22-32)
[2018-10-28] MEDS: acetaminophen w/codeine (30MG) #3 tablet PO PRN (14:29)
[2018-10-28] MEDS: ondansetron/PF 4mg/2ml inj IV PRN (14:46)
[2018-10-28] MEDS: heparin 25,000 UNIT/250ml bag 250 ML IV SCH (14:49)
--- NOTE | 2018-10-28 15:20 | NUR ---
Contacted pt's nephewLeo, to update on heparin drip and s/p thoracentesis, Leo states no further questions.
--- NOTE | 2018-10-28 16:08 | NUR ---
Paged Dr. Story re critical results. PAGER ID: [phone] MESSAGE: Pt Jia Ferguson in 0174G. Pleural fluid has few WBCs, rare gram pos cocci in clusters. Thanks! Sakina REYNA [phone]
[2018-10-28] MEDS: vancomycin/NS 1 GM ADD-VANTAGE 250 ML IV SCH (17:46)
--- NOTE | 2018-10-28 18:05 | NUR ---
Pt out of room for MRI.
--- NOTE | 2018-10-28 18:17 | NUR ---
Problems reprioritized. Patient report given, questions answered & plan of care reviewed with MARIBELL Dobbs & MARIBELL Vasquez.
[2018-10-28] MEDS ORDERED: warfarin 3mg tablet PO ONE (21:00)
[2018-10-28] MEDS: insulin glargine (Lantus) pen - multi-dose SQ SCH (21:00)
[2018-10-28] MEDS ORDERED: warfarin 4mg tablet PO ONE (21:00)
[2018-10-28] MEDS: atorvastatin 10mg tablet PO SCH (21:50)
[2018-10-28] MEDS: zolpidem 5mg tablet PO PRN (23:07)
[2018-10-29] MEDS: piperacillin/tazo 3.375gm/50ml 50 ML IV SCH ×3 (00:21→17:08)
[2018-10-29] MEDS: acetaminophen w/codeine (30MG) #3 tablet PO PRN ×2 (00:40→11:52)
[2018-10-29] MEDS: zolpidem 5mg tablet PO PRN (00:40)
[2018-10-29] MEDS: ondansetron/PF 4mg/2ml inj IV PRN ×2 (00:41→11:54)
[2018-10-29] MEDS: ipratropium/albuterol 3ml nebule NEB SCH ×6 (03:44→23:06)
[2018-10-29 04:05] LABS: INR 1.2 INR
[2018-10-29 06:00] VITALS: BP 111/76
--- NOTE | 2018-10-29 06:00 | NUR ---
Patient in room PCU 3016. I have received report from MARIBELL Dobbs and had the opportunity to ask questions and assume patient care.
[2018-10-29 06:41] LABS: BASOPHILS % (AUTO) 0.2 % (0-1); EOSINOPHILS % (AUTO) 0 % (0-6); HEMATOCRIT 41.5 % (35.0-45.0); HEMOGLOBIN 12.8 g/dl (12.0-16.0); LYMPHOCYTES # (AUTO) 0.4 X10'3 (1.1-4.8); LYMPHOCYTES % (AUTO) 2.7 % (21-51); MEAN CORPUSCULAR HEMOGLOBIN 28.3 PG (27.0-31.0); MEAN CORPUSCULAR HGB CONC 30.7 g/dL (33.0-36.5); MEAN CORPUSCULAR VOLUME 92.1 FL (78-98); MEAN PLATELET VOLUME 9.2 FL (7.4-10.4); MONOCYTES # (AUTO) 0.6 X10'3 (0-0.9); MONOCYTES % (AUTO) 3.5 % (2-12); NEUTROPHILS # (AUTO) 14.7 X10'3 (1.8-7.7); NEUTROPHILS % (AUTO) 93.6 % (42-75); PLATELET COUNT 238 X10'3 (140-440); RED BLOOD COUNT 4.51 X10'6 (4.20-5.60); RED CELL DISTRIBUTION WIDTH 19.7 % (11.5-14.5); WHITE BLOOD COUNT 15.7 X10'3 (4.5-11.0)
--- NOTE | 2018-10-29 06:51 | NUR ---
Called Dr Gould, NOC environmental services assistant, regarding critical findings or MRI of head. Notified MD that patient on heparin drip and events leading to MRI. No orders received. Will inform hospitalist as soon as he is available. Addendum: 10/29/18 at 0719 by Nguyen Crowell RN Received follow-up call from Dr Gould, recommended to notify hospitalist and pt will likely need neuro consult.
[2018-10-29 07:04] LABS: ALANINE AMINOTRANSFERASE 238 U/L (12-78); ALBUMIN 2.9 G/DL (3.4-5.0); ALBUMIN/GLOBULIN RATIO 0.6 (1.1-1.5); ALKALINE PHOSPHATASE 113 IU/L (46-116); ANION GAP 2 (8-16); ASPARTATE AMINO TRANSFERASE 25 U/L (10-37); BILIRUBIN,TOTAL 0.8 MG/DL (0.1-1.0); BLOOD UREA NITROGEN 25 MG/DL (7-18); BUN/CREATININE RATIO 23.6 (6.6-38.0); CALCIUM 8.7 MG/DL (8.5-10.1); CHLORIDE 99 MMOL/L (99-107); CREATININE 1.06 MG/DL (0.40-0.90); GLUCOSE 142 MG/DL (70-104); MAGNESIUM 1.7 MG/DL (1.5-2.4); PHOSPHORUS 3.4 MG/DL (2.3-4.5); POTASSIUM 3.8 MMOL/L (3.5-5.1); SODIUM 137 MMOL/L (135-145); TOTAL CARBON DIOXIDE 35.6 MMOL/L (24-32); TOTAL PROTEIN 7.5 G/DL (6.4-8.2); eGFR 53 ML/MIN
--- NOTE | 2018-10-29 07:18 | NUR ---
PAGER ID: [phone] MESSAGE: [id number] Jia Ferguson. Critical finding head MRI, "acute subcortical infarcts of the right parietal lobe". Larisa REYNA 1312
[2018-10-29] MEDS: vancomycin/NS 1 GM ADD-VANTAGE 250 ML IV SCH ×2 (07:26→18:00)
[2018-10-29] MEDS: pantoprazole 40mg Tablet.DR PO SCH (07:30)
--- NOTE | 2018-10-29 07:47 | NUR ---
PAGER ID: [phone] MESSAGE: room 3252T. FergusonJia. Need signature on Neuro Consult request form please. Thank you. Patria REYNA ext [phone] Addendum: 10/29/18 at 0818 by Nguyen Crowell RN Received return call, per Dr Story no repeat imaging necessary. Please place orders for atorvastatin 80mg PO now and then daily. Also, hold baby aspirin this morning and give 1x dose of 325 mg aspiring, resume baby aspirin tomorrow.
[2018-10-29] MEDS: azithromycin 250mg tablet PO SCH ×2 (08:00→11:52)
[2018-10-29] MEDS: atorvastatin 20mg tablet PO SCH ×2 (08:00→13:23)
[2018-10-29] MEDS: metoprolol succinate 25mg (24-HOUR) SR. Tablet PO SCH (08:00)
[2018-10-29] MEDS: lisinopril 10 MG tablet PO SCH (08:00)
[2018-10-29] MEDS: lactobacillus rhamnosus 10,000 MMU CELLS/CAPSULE PO SCH ×3 (08:00→20:00)
[2018-10-29] MEDS: topiramate 100mg tablet PO SCH ×3 (08:00→20:00)
[2018-10-29] MEDS: furosemide 40mg/4ml inj IV SCH ×2 (08:00→20:00)
[2018-10-29] MEDS: levetiracetam 250mg tablet PO SCH ×3 (08:00→20:00)
[2018-10-29] MEDS: aspirin 325mg tablet PO ONE ×2 (08:20→11:56)
[2018-10-29 08:24] LABS: BASOPHILS # (AUTO) 0.1 X10'3 (0-0.2); BASOPHILS % (AUTO) 0.4 % (0-1); EOSINOPHILS % (AUTO) 0 % (0-6); HEMATOCRIT 33.7 % (35.0-45.0); HEMOGLOBIN 10.5 g/dl (12.0-16.0); LYMPHOCYTES # (AUTO) 0.5 X10'3 (1.1-4.8); LYMPHOCYTES % (AUTO) 3.7 % (21-51); MEAN CORPUSCULAR HEMOGLOBIN 28.3 PG (27.0-31.0); MEAN CORPUSCULAR HGB CONC 31.2 g/dL (33.0-36.5); MEAN CORPUSCULAR VOLUME 90.6 FL (78-98); MEAN PLATELET VOLUME 8.6 FL (7.4-10.4); MONOCYTES # (AUTO) 0.5 X10'3 (0-0.9); MONOCYTES % (AUTO) 3.9 % (2-12); NEUTROPHILS # (AUTO) 11.9 X10'3 (1.8-7.7); PLATELET COUNT 218 X10'3 (140-440); RED BLOOD COUNT 3.73 X10'6 (4.20-5.60); RED CELL DISTRIBUTION WIDTH 19.3 % (11.5-14.5)
[2018-10-29] MEDS: aspirin 81mg tab.chew PO SCH (08:30)
[2018-10-29 08:35] LABS: INR 1.3 INR
[2018-10-29 08:38] LABS: ALANINE AMINOTRANSFERASE 193 U/L (12-78); ALBUMIN 2.3 G/DL (3.4-5.0); ALBUMIN/GLOBULIN RATIO 0.6 (1.1-1.5); ALKALINE PHOSPHATASE 88 IU/L (46-116); ASPARTATE AMINO TRANSFERASE 22 U/L (10-37); BILIRUBIN,TOTAL 0.6 MG/DL (0.1-1.0); BLOOD UREA NITROGEN 26 MG/DL (7-18); BUN/CREATININE RATIO 28.3 (6.6-38.0); CALCIUM 7.9 MG/DL (8.5-10.1); CREATININE 0.92 MG/DL (0.40-0.90); GLUCOSE 126 MG/DL (70-104); POTASSIUM 3.8 MMOL/L (3.5-5.1); TOTAL PROTEIN 6.1 G/DL (6.4-8.2); eGFR 63 ML/MIN
[2018-10-29 08:44] LABS: ANION GAP 3 (8-16); CHLORIDE 100 MMOL/L (99-107); SODIUM 136 MMOL/L (135-145); TOTAL CARBON DIOXIDE 32.9 MMOL/L (24-32)
[2018-10-29 09:10] LABS: ANISOCYTOSIS 2+; HYPOCHROMASIA 1+; PLATELET ESTIMATE NORMAL
[2018-10-29 09:11] LABS: POIKILOCYTOSIS FEW
[2018-10-29 11:00] VITALS: BP 118/83
[2018-10-29] MEDS: methylPREDNISolone sod succ 125mg/2ml vial IV SCH (11:54)
--- NOTE | 2018-10-29 12:30 | NUR ---
Discussed pt's condition with MD and patient, including patient's code status and patient's wishes to refuse BiPAP, no changes to code status at this time. Please start IS and flutter valve with patient.
[2018-10-29] MEDS: heparin 25,000 UNIT/250ml bag 250 ML IV SCH ×2 (12:46→17:11)
--- NOTE | 2018-10-29 14:25 | NUR ---
Per pt's request, called patient's nephew, Leo, and updated on results of examinations as discussed with patient by Dr Story. Also conveyed patient's verbal request tell patient that she wants to leave and to have nephew come to patient at bedside. Leo states that he is at an event and will be able to come visit as soon as possible and to please convey message to patient. Will convey Leo's message.
[2018-10-29 15:00] VITALS: BP 110/78
--- NOTE | 2018-10-29 15:19 | NUR ---
STARTED PTS'S 1500 SVN DUONE[place] TX, ATTEMPTED TO PUT MASK ON PT AND PT REFUSED TX. PT ON 3L SPO2 93% NO SOB OR DISTRESS NOTED. Addendum: 10/29/18 at 1521 by Nicol Delgado RT Amended: Links added.
--- NOTE | 2018-10-29 17:04 | NUR ---
PAGER ID: [phone] MESSAGE: [id number] Milady Ferguson Tele consult report at [facility] nurses station. Larisa REYNA [phone]
--- NOTE | 2018-10-29 18:40 | NUR ---
Problems reprioritized. Patient report given, questions answered & plan of care reviewed with MARIBELL Benavides.
[2018-10-29 19:00] VITALS: BP 123/49
[2018-10-29] MEDS: insulin glargine (Lantus) pen - multi-dose SQ SCH (21:00)
[2018-10-29] MEDS ORDERED: warfarin 3mg tablet PO ONE (21:00)
[2018-10-29 23:00] VITALS: BP 93/75
[2018-10-30] MEDS: piperacillin/tazo 3.375gm/50ml 50 ML IV SCH ×4 (00:15→15:34)
[2018-10-30] MEDS: ipratropium/albuterol 3ml nebule NEB SCH ×6 (02:53→23:33)
[2018-10-30 03:00] VITALS: BP 90/59
[2018-10-30] MEDS ORDERED: VANCOMYCIN LEVEL IV NR (05:30)
[2018-10-30] MEDS: hydrOXYzine 25 MG tablet PO PRN (05:30)
[2018-10-30] MEDS: acetaminophen w/codeine (30MG) #3 tablet PO PRN ×2 (05:30→22:27)
[2018-10-30] MEDS: vancomycin/NS 1 GM ADD-VANTAGE 250 ML IV SCH ×2 (05:48→19:59)
[2018-10-30 06:00] VITALS: BP 110/84
[2018-10-30 06:07] LABS: BASOPHILS # (AUTO) 0.1 X10'3 (0-0.2); EOSINOPHILS # (AUTO) 0.1 X10'3 (0-0.9); EOSINOPHILS % (AUTO) 0.7 % (0-6); HEMATOCRIT 30.7 % (35.0-45.0); HEMOGLOBIN 9.6 g/dl (12.0-16.0); LYMPHOCYTES # (AUTO) 0.6 X10'3 (1.1-4.8); LYMPHOCYTES % (AUTO) 6.2 % (21-51); MEAN CORPUSCULAR HEMOGLOBIN 28.7 PG (27.0-31.0); MEAN CORPUSCULAR HGB CONC 31.4 g/dL (33.0-36.5); MEAN CORPUSCULAR VOLUME 91.5 FL (78-98); MEAN PLATELET VOLUME 8.3 FL (7.4-10.4); MONOCYTES # (AUTO) 0.8 X10'3 (0-0.9); MONOCYTES % (AUTO) 7.7 % (2-12); NEUTROPHILS # (AUTO) 8.2 X10'3 (1.8-7.7); NEUTROPHILS % (AUTO) 84.4 % (42-75); PLATELET COUNT 198 X10'3 (140-440); RED BLOOD COUNT 3.36 X10'6 (4.20-5.60); RED CELL DISTRIBUTION WIDTH 19.4 % (11.5-14.5); WHITE BLOOD COUNT 9.8 X10'3 (4.5-11.0)
--- NOTE | 2018-10-30 06:15 | NUR ---
Patient in room PCU 3016. I have received report from MARIBELL Benavides and had the opportunity to ask questions and assume patient care.
[2018-10-30 06:31] LABS: ALANINE AMINOTRANSFERASE 131 U/L (12-78); ALBUMIN 1.9 G/DL (3.4-5.0); ALBUMIN/GLOBULIN RATIO 0.5 (1.1-1.5); ALKALINE PHOSPHATASE 70 IU/L (46-116); ANION GAP 19 (8-16); ASPARTATE AMINO TRANSFERASE 19 U/L (10-37); BILIRUBIN,TOTAL 0.3 MG/DL (0.1-1.0); BLOOD UREA NITROGEN 22 MG/DL (7-18); BUN/CREATININE RATIO 19.3 (6.6-38.0); CALCIUM 6.7 MG/DL (8.5-10.1); CHLORIDE 89 MMOL/L (99-107); CREATININE 1.14 MG/DL (0.40-0.90); GLUCOSE 229 MG/DL (70-104); MAGNESIUM 1.4 MG/DL (1.5-2.4); PHOSPHORUS 2.3 MG/DL (2.3-4.5); SODIUM 138 MMOL/L (135-145); TOTAL CARBON DIOXIDE 30.1 MMOL/L (24-32); TOTAL PROTEIN 6.1 G/DL (6.4-8.2); eGFR 49 ML/MIN
--- NOTE | 2018-10-30 06:35 | NUR ---
PAGER ID: [phone] MESSAGE: [id number] Milady Ferguson K 3.0, no replacement orders. Electrolyte replacement per protocol? Larisa REYNA [phone]
[2018-10-30 07:11] LABS: ANISOCYTOSIS 2+; PLATELET ESTIMATE NORMAL
[2018-10-30 07:12] LABS: ELLIPTOCYTES FEW; HYPOCHROMASIA 1+; SCHISTOCYTES FEW
[2018-10-30 07:13] LABS: POLYCHROMASIA FEW
--- NOTE | 2018-10-30 07:31 | NUR ---
PAGER ID: [phone] MESSAGE: [id number] Milady Ferguson 3.0, Mag 1.4, no electrolyte replacement orders. Please advise, thank you. MARIBELL Peres [phone]
[2018-10-30 07:33] LABS: INR 1.6 INR
[2018-10-30] MEDS: furosemide 40mg/4ml inj IV SCH ×2 (08:00→20:00)
[2018-10-30] MEDS: lisinopril 10 MG tablet PO SCH (08:00)
[2018-10-30] MEDS: metoprolol succinate 25mg (24-HOUR) SR. Tablet PO SCH (08:00)
--- NOTE | 2018-10-30 08:13 | NUR ---
No lou in fridge, request sent to pharmacy.
[2018-10-30] MEDS: methylPREDNISolone sod succ/PF 40mg inj. IV SCH ×2 (08:26→08:29)
[2018-10-30] MEDS: azithromycin 250mg tablet PO SCH (08:27)
[2018-10-30] MEDS: aspirin 81mg tab.chew PO SCH (08:28)
[2018-10-30] MEDS: levetiracetam 250mg tablet PO SCH ×2 (08:28→20:07)
[2018-10-30] MEDS: topiramate 100mg tablet PO SCH ×2 (08:28→20:07)
[2018-10-30] MEDS: atorvastatin 20mg tablet PO SCH (08:29)
[2018-10-30] MEDS: pantoprazole 40mg Tablet.DR PO SCH (08:29)
[2018-10-30] MEDS: lactobacillus rhamnosus 10,000 MMU CELLS/CAPSULE PO SCH ×2 (08:29→20:00)
[2018-10-30] MEDS ORDERED: potassium Cl 20 mEq SR tablet PO PRN (08:40)
[2018-10-30] MEDS ORDERED: magnesium 4gm in 100ml NS 100 ML IV PRN (08:40)
[2018-10-30] MEDS ORDERED: potassium Cl 40MEQ/NS 500ml 500 ML IV PRN ×2 (08:40)
[2018-10-30] MEDS: potassium Cl 20 mEq SR tablet PO PRN ×3 (09:43→20:09)
[2018-10-30] MEDS: magnesium Cl slow-release 64mg tablet PO PRN ×2 (09:43→20:10)
--- NOTE | 2018-10-30 10:11 | NUR ---
Called martha Bailey, notified of pt walking 3 steps with PT this AM and that patient is requesting to talk with him. Leo states that he is driving but will be coming to the hospital as soon as he can, please notify patient.
[2018-10-30 11:00] VITALS: BP 105/73
--- NOTE | 2018-10-30 11:20 | NUR ---
reassessment: Pt PO fluctuates but improved to 50-75% avg mechanical soft diet likely meeting needs. Receiving electrolyte replacement per protocol. [place] 10/27. Will continue to monitor. Recommend: 1. Continue with [facility] soft diet with advancement to heart healthy per VENDOR MANAGEMENT SPECIALIST recs 2. routine bowel care 3. monitor for ONS needs 4. wt per rx Addendum: 10/30/18 at [address] Amended: Links added.
[2018-10-30 15:00] VITALS: BP 110/69
[2018-10-30] MEDS ORDERED: furosemide 20 MG/2 ML vial IV ONE (15:10)
--- NOTE | 2018-10-30 16:16 | NUR ---
Pt refusing now dose lasix IV, pt states peeing to much, will reconsider taking later.
[2018-10-30 18:00] VITALS: BP 103/77
--- NOTE | 2018-10-30 18:10 | NUR ---
Problems reprioritized. Patient report given, questions answered & plan of care reviewed with MARIBELL Priest.
--- NOTE | 2018-10-30 18:53 | NUR ---
Patient in room PCU 3016. I have received report from MARIBELL Peres and had the opportunity to ask questions and assume patient care.
[2018-10-30] MEDS: ondansetron/PF 4mg/2ml inj IV PRN (20:10)
[2018-10-30] MEDS: insulin glargine (Lantus) pen - multi-dose SQ SCH (21:00)
[2018-10-30] MEDS ORDERED: warfarin 1mg tablet PO ONE (21:00)
[2018-10-30 22:00] VITALS: BP 116/76
[2018-10-31] VITALS (8 sets, daily range): BP systolic 91–117; BP diastolic 57–85
[2018-10-31] MEDS: lactulose 20gm/30ml cup PO SCH ×6 (01:45→23:12)
[2018-10-31] MEDS: hydrOXYzine 25 MG tablet PO PRN (01:45)
[2018-10-31] MEDS: heparin 25,000 UNIT/250ml bag 250 ML IV SCH ×2 (01:48→15:44)
[2018-10-31] MEDS: piperacillin/tazo 3.375gm/50ml 50 ML IV SCH ×4 (02:50→23:11)
[2018-10-31] MEDS: ipratropium/albuterol 3ml nebule NEB SCH ×6 (03:10→23:09)
[2018-10-31 05:20] LABS: BASOPHILS % (AUTO) 0.1 % (0-1); EOSINOPHILS # (AUTO) 0.1 X10'3 (0-0.9); EOSINOPHILS % (AUTO) 1.2 % (0-6); HEMATOCRIT 35.8 % (35.0-45.0); HEMOGLOBIN 11.1 g/dl (12.0-16.0); LYMPHOCYTES # (AUTO) 0.9 X10'3 (1.1-4.8); LYMPHOCYTES % (AUTO) 8.2 % (21-51); MEAN CORPUSCULAR HEMOGLOBIN 28.3 PG (27.0-31.0); MEAN CORPUSCULAR HGB CONC 31.1 g/dL (33.0-36.5); MEAN CORPUSCULAR VOLUME 91.2 FL (78-98); MEAN PLATELET VOLUME 8.6 FL (7.4-10.4); MONOCYTES # (AUTO) 0.9 X10'3 (0-0.9); NEUTROPHILS # (AUTO) 8.8 X10'3 (1.8-7.7); NEUTROPHILS % (AUTO) 82.5 % (42-75); PLATELET COUNT 255 X10'3 (140-440); RED BLOOD COUNT 3.93 X10'6 (4.20-5.60); RED CELL DISTRIBUTION WIDTH 19.1 % (11.5-14.5); WHITE BLOOD COUNT 10.7 X10'3 (4.5-11.0)
[2018-10-31 05:23] LABS: INR 1.5 INR
--- NOTE | 2018-10-31 06:00 | NUR ---
Problems reprioritized. Patient report given, questions answered & plan of care reviewed with Galina Bhatia RN.
--- NOTE | 2018-10-31 06:36 | NUR ---
Patient in room PCU 3016. I have received report from Zayda REYNA and had the opportunity to ask questions and assume patient care.
[2018-10-31 06:42] LABS: ALANINE AMINOTRANSFERASE 159 U/L (12-78); ALBUMIN 2.5 G/DL (3.4-5.0); ALBUMIN/GLOBULIN RATIO 0.6 (1.1-1.5); ALKALINE PHOSPHATASE 93 IU/L (46-116); ANION GAP 1 (8-16); ASPARTATE AMINO TRANSFERASE 24 U/L (10-37); BILIRUBIN,TOTAL 0.4 MG/DL (0.1-1.0); BLOOD UREA NITROGEN 20 MG/DL (7-18); BUN/CREATININE RATIO 24.7 (6.6-38.0); CALCIUM 8.3 MG/DL (8.5-10.1); CHLORIDE 102 MMOL/L (99-107); CREATININE 0.81 MG/DL (0.40-0.90); GLUCOSE 101 MG/DL (70-104); MAGNESIUM 1.9 MG/DL (1.5-2.4); PHOSPHORUS 2.3 MG/DL (2.3-4.5); POTASSIUM 5.2 MMOL/L (3.5-5.1); PREALBUMIN 19.1 MG/DL (19-36); SODIUM 136 MMOL/L (135-145); TOTAL CARBON DIOXIDE 33.5 MMOL/L (24-32); TOTAL PROTEIN 6.5 G/DL (6.4-8.2); eGFR 73 ML/MIN
[2018-10-31 07:15] LABS: ANISOCYTOSIS 2+; PLATELET ESTIMATE NORMAL; TOTAL CELLS COUNTED 100
[2018-10-31] MEDS: pantoprazole 40mg Tablet.DR PO SCH (07:30)
[2018-10-31] MEDS: levetiracetam 250mg tablet PO SCH ×2 (08:00→19:06)
[2018-10-31] MEDS: atorvastatin 20mg tablet PO SCH (08:00)
[2018-10-31] MEDS: topiramate 100mg tablet PO SCH ×2 (08:00→19:06)
[2018-10-31] MEDS: metoprolol succinate 25mg (24-HOUR) SR. Tablet PO SCH (08:00)
[2018-10-31] MEDS: lactobacillus rhamnosus 10,000 MMU CELLS/CAPSULE PO SCH ×2 (08:00→19:05)
[2018-10-31] MEDS: lisinopril 10 MG tablet PO SCH (08:00)
[2018-10-31] MEDS: aspirin 81mg tab.chew PO SCH (08:30)
--- NOTE | 2018-10-31 09:00 | NUR ---
Called a rapid response due to mentation changes. Patient was unable to stay awake and required a sternal rub to arouse. RR Team responded and new orders of Bipap and ABG were obtained from Dr. Story at bedside. Dontrell did wake up and was able to demonstrate she knew her name and place. Patient was put on bipap and O2sat is now in the 90s. Patient is still fatigued and in and out of a sleeping state. Will continue to monitor.
[2018-10-31] MEDS: furosemide 40mg/4ml inj IV SCH ×2 (10:09→19:05)
[2018-10-31 10:11] LABS: ABG BASE EXCESS 2.8 mmol/L (-2.0-3.0); ABG HCO3 31.9 mmol/L (22.0-26.0); ABG OXYGEN SATURATION 92.5 % (95-98); ABG PCO2 (T) 74.6 mmHg (32.0-45.0); ABG PH (T) 7.249 (7.350-7.450); ABG PO2 (T) 66.4 mmHg (83-108); ALLEN'S TEST Positive; FCOHb 0.8 % (0.5-1.5); FLOW 3 L/min; FMetHb 0.1 % (0.3-1.12); FO2Hb 91.7 % (94-100)
[2018-10-31 12:01] LABS: URINE AMPHETAMINE SCREEN NEGATIVE (Neg); URINE BARBITUATE SCREEN NEGATIVE (Neg); URINE BENZODIAZEPINES SCREEN NEGATIVE (Neg); URINE CANNABINOID SCREEN NEGATIVE (Neg); URINE COCAINE SCREEN NEGATIVE (Neg); URINE METHADONE SCREEN NEGATIVE (Neg); URINE OPIATE SCREEN NEGATIVE (Neg); URINE PHENCYCLIDINE SCREEN NEGATIVE (Neg)
--- NOTE | 2018-10-31 12:44 | NUR ---
Called lab due to PTT not being drawn at the time ordered, was informed they are on the way up at this time.
--- NOTE | 2018-10-31 14:18 | NUR ---
Patient is on bipap, does not have any interest in waking up to eat her meals. The patient wakes only to light shaking and voice commands, and then she falls asleep immediately. Patient changes position slightly in bed, will continue to monitor and reposition as needed.
--- NOTE | 2018-10-31 14:43 | NUR ---
PAGER ID: [phone] MESSAGE: Tomas [address]. Patient had 5 sec. of SVT when having labs drawn. Pt now SR in the 80s. Jannette [id number]
[2018-10-31] MEDS ORDERED: VANCOMYCIN LEVEL IV NR (17:30)
[2018-10-31] MEDS ORDERED: Lactulose Enema **for rectal use only RC ONE ×2 (17:40)
--- NOTE | 2018-10-31 18:45 | NUR ---
Problems reprioritized. Patient report given, questions answered & plan of care reviewed with Amina REYNA. Patient stable at transfer of care.
--- NOTE | 2018-10-31 18:45 | NUR ---
Patient in room PCU 3016. I have received report from ruslan Bhatia and had the opportunity to ask questions and assume patient care.
[2018-10-31] MEDS: insulin glargine (Lantus) pen - multi-dose SQ SCH (21:00)
[2018-10-31] MEDS ORDERED: warfarin 3mg tablet PO ONE (21:00)
--- NOTE | 2018-10-31 21:30 | NUR ---
Patient in room PCU 3016. I have received report from MARIBELL Salinas and had the opportunity to ask questions and assume patient care.
[2018-10-31] MEDS: acetaminophen w/codeine (30MG) #3 tablet PO PRN (22:45)
[2018-11-01] MEDS: heparin 25,000 UNIT/250ml bag 250 ML IV SCH (00:29)
[2018-11-01] MEDS: ipratropium/albuterol 3ml nebule NEB SCH ×6 (02:59→23:09)
[2018-11-01 03:00] VITALS: BP 97/59
[2018-11-01] MEDS: acetaminophen w/codeine (30MG) #3 tablet PO PRN ×3 (03:17→21:14)
[2018-11-01] MEDS: lactulose 20gm/30ml cup PO SCH ×6 (03:23→23:43)
--- NOTE | 2018-11-01 06:15 | NUR ---
Patient in room PCU 3016. I have received report from Sakina REYNA and had the opportunity to ask questions and assume patient care.
--- NOTE | 2018-11-01 06:35 | NUR ---
Problems reprioritized. Patient report given, questions answered & plan of care reviewed with MARIBELL Vora.
[2018-11-01 06:55] LABS: BASOPHILS % (AUTO) 0.1 % (0-1); EOSINOPHILS # (AUTO) 0.3 X10'3 (0-0.9); EOSINOPHILS % (AUTO) 2.7 % (0-6); HEMOGLOBIN 9.9 g/dl (12.0-16.0); LYMPHOCYTES # (AUTO) 0.7 X10'3 (1.1-4.8); LYMPHOCYTES % (AUTO) 5.8 % (21-51); MEAN CORPUSCULAR HEMOGLOBIN 27.8 PG (27.0-31.0); MEAN CORPUSCULAR HGB CONC 31.1 g/dL (33.0-36.5); MEAN CORPUSCULAR VOLUME 89.6 FL (78-98); MEAN PLATELET VOLUME 8.3 FL (7.4-10.4); MONOCYTES # (AUTO) 0.3 X10'3 (0-0.9); MONOCYTES % (AUTO) 2.9 % (2-12); NEUTROPHILS # (AUTO) 9.9 X10'3 (1.8-7.7); NEUTROPHILS % (AUTO) 88.5 % (42-75); PLATELET COUNT 194 X10'3 (140-440); RED BLOOD COUNT 3.57 X10'6 (4.20-5.60); RED CELL DISTRIBUTION WIDTH 18.8 % (11.5-14.5); WHITE BLOOD COUNT 11.2 X10'3 (4.5-11.0)
[2018-11-01 07:00] VITALS: BP 110/70
[2018-11-01 07:07] LABS: ALANINE AMINOTRANSFERASE 103 U/L (12-78); ALBUMIN 2.1 G/DL (3.4-5.0); ALBUMIN/GLOBULIN RATIO 0.6 (1.1-1.5); ALKALINE PHOSPHATASE 84 IU/L (46-116); ANION GAP -3 (8-16); ASPARTATE AMINO TRANSFERASE 21 U/L (10-37); BILIRUBIN,TOTAL 0.7 MG/DL (0.1-1.0); BLOOD UREA NITROGEN 19 MG/DL (7-18); BUN/CREATININE RATIO 20.7 (6.6-38.0); CALCIUM 8.1 MG/DL (8.5-10.1); CHLORIDE 99 MMOL/L (99-107); CREATININE 0.92 MG/DL (0.40-0.90); GLUCOSE 89 MG/DL (70-104); MAGNESIUM 1.7 MG/DL (1.5-2.4); PHOSPHORUS 2.7 MG/DL (2.3-4.5); POTASSIUM 3.7 MMOL/L (3.5-5.1); SODIUM 137 MMOL/L (135-145); TOTAL PROTEIN 5.5 G/DL (6.4-8.2); eGFR 63 ML/MIN
[2018-11-01 07:10] LABS: INR 1.6 INR
[2018-11-01 07:14] LABS: TOTAL CARBON DIOXIDE 40.9 MMOL/L (24-32)
[2018-11-01] MEDS: furosemide 40mg/4ml inj IV SCH ×2 (08:06→21:17)
[2018-11-01] MEDS: methylPREDNISolone sod succ/PF 40mg inj. IV SCH (08:06)
[2018-11-01] MEDS: lactobacillus rhamnosus 10,000 MMU CELLS/CAPSULE PO SCH ×2 (08:07→21:15)
[2018-11-01] MEDS: pantoprazole 40mg Tablet.DR PO SCH (08:07)
[2018-11-01] MEDS: topiramate 100mg tablet PO SCH ×2 (08:07→21:14)
[2018-11-01] MEDS: lisinopril 10 MG tablet PO SCH (08:08)
[2018-11-01] MEDS: levetiracetam 250mg tablet PO SCH ×2 (08:08→21:14)
[2018-11-01] MEDS: atorvastatin 20mg tablet PO SCH (08:09)
[2018-11-01] MEDS: aspirin 81mg tab.chew PO SCH (08:09)
[2018-11-01] MEDS: metoprolol succinate 25mg (24-HOUR) SR. Tablet PO SCH (08:19)
[2018-11-01] MEDS: piperacillin/tazo 3.375gm/50ml 50 ML IV SCH ×3 (08:22→23:23)
[2018-11-01 11:00] VITALS: BP 105/65
[2018-11-01 17:30] LABS: ANISOCYTOSIS 2+; HYPOCHROMASIA 2+; PLATELET ESTIMATE NORMAL; STOMATOCYTES 2+
[2018-11-01 18:00] VITALS: BP 95/55
--- NOTE | 2018-11-01 18:21 | NUR ---
Problems reprioritized. Patient report given, questions answered & plan of care reviewed with Carlene REYNA.
--- NOTE | 2018-11-01 18:22 | NUR ---
Patient in room PCU 3016. I have received report from Diony and had the opportunity to ask questions and assume patient care.
[2018-11-01] MEDS ORDERED: warfarin 3mg tablet PO ONE (21:00)
[2018-11-01] MEDS: insulin glargine (Lantus) pen - multi-dose SQ SCH (21:00)
[2018-11-01 22:00] VITALS: BP 99/58
[2018-11-01] MEDS: ondansetron/PF 4mg/2ml inj IV PRN (22:11)
[2018-11-02] VITALS (7 sets, daily range): BP systolic 88–123; BP diastolic 55–79
[2018-11-02 01:16] LABS: BASOPHILS % (AUTO) 0.2 % (0-1); EOSINOPHILS # (AUTO) 0.2 X10'3 (0-0.9); HEMATOCRIT 30.7 % (35.0-45.0); HEMOGLOBIN 9.6 g/dl (12.0-16.0); LYMPHOCYTES # (AUTO) 0.5 X10'3 (1.1-4.8); LYMPHOCYTES % (AUTO) 5.2 % (21-51); MEAN CORPUSCULAR HEMOGLOBIN 28.2 PG (27.0-31.0); MEAN CORPUSCULAR HGB CONC 31.3 g/dL (33.0-36.5); MEAN CORPUSCULAR VOLUME 90.2 FL (78-98); MEAN PLATELET VOLUME 8.1 FL (7.4-10.4); MONOCYTES # (AUTO) 0.4 X10'3 (0-0.9); MONOCYTES % (AUTO) 4.5 % (2-12); NEUTROPHILS # (AUTO) 8.4 X10'3 (1.8-7.7); NEUTROPHILS % (AUTO) 88.1 % (42-75); PLATELET COUNT 191 X10'3 (140-440); RED BLOOD COUNT 3.41 X10'6 (4.20-5.60); RED CELL DISTRIBUTION WIDTH 19.3 % (11.5-14.5); WHITE BLOOD COUNT 9.5 X10'3 (4.5-11.0)
[2018-11-02 01:33] LABS: ALANINE AMINOTRANSFERASE 88 U/L (12-78); ALBUMIN/GLOBULIN RATIO 0.6 (1.1-1.5); ALKALINE PHOSPHATASE 80 IU/L (46-116); ANION GAP 0 (8-16); ASPARTATE AMINO TRANSFERASE 20 U/L (10-37); BILIRUBIN,TOTAL 0.4 MG/DL (0.1-1.0); BLOOD UREA NITROGEN 14 MG/DL (7-18); BUN/CREATININE RATIO 17.3 (6.6-38.0); CALCIUM 7.9 MG/DL (8.5-10.1); CHLORIDE 102 MMOL/L (99-107); CREATININE 0.81 MG/DL (0.40-0.90); GLUCOSE 146 MG/DL (70-104); MAGNESIUM 1.7 MG/DL (1.5-2.4); PHOSPHORUS 2.5 MG/DL (2.3-4.5); POTASSIUM 3.4 MMOL/L (3.5-5.1); SODIUM 139 MMOL/L (135-145); TOTAL CARBON DIOXIDE 37.1 MMOL/L (24-32); TOTAL PROTEIN 5.3 G/DL (6.4-8.2); eGFR 73 ML/MIN
--- NOTE | 2018-11-02 01:43 | NUR ---
PTT at 68, still in therapeutic range. no change for heparin drip. patient had a MAP of 61, systolic in the low 80s. Repositioned her, patient is asymptomatic. BP was still low, gave a 250 NS bolus. SBP is up to 81. Continuing to monitor
[2018-11-02] MEDS: ipratropium/albuterol 3ml nebule NEB SCH ×6 (03:19→23:19)
[2018-11-02] MEDS: lactulose 20gm/30ml cup PO SCH ×6 (04:00→23:17)
--- NOTE | 2018-11-02 04:32 | NUR ---
elevated patient's legs, replaced BP cuff, woke her up. MAP was up to 68
--- NOTE | 2018-11-02 06:09 | NUR ---
Problems reprioritized. Patient report given, questions answered & plan of care reviewed with
--- NOTE | 2018-11-02 06:16 | NUR ---
Patient in room PCU 3016. I have received report from MARIBELL Concepcion and had the opportunity to ask questions and assume patient care.
[2018-11-02] MEDS: heparin 25,000 UNIT/250ml bag 250 ML IV SCH (07:02)
[2018-11-02] MEDS: topiramate 100mg tablet PO SCH ×2 (07:48→20:26)
[2018-11-02] MEDS: pantoprazole 40mg Tablet.DR PO SCH (07:48)
[2018-11-02] MEDS: atorvastatin 20mg tablet PO SCH (07:49)
[2018-11-02] MEDS: levetiracetam 250mg tablet PO SCH ×2 (07:49→20:26)
[2018-11-02] MEDS: lactobacillus rhamnosus 10,000 MMU CELLS/CAPSULE PO SCH ×2 (07:49→20:26)
[2018-11-02] MEDS: metoprolol succinate 25mg (24-HOUR) SR. Tablet PO SCH (07:53)
[2018-11-02] MEDS: furosemide 40mg/4ml inj IV SCH ×2 (07:53→20:00)
[2018-11-02] MEDS: lisinopril 10 MG tablet PO SCH (07:53)
[2018-11-02] MEDS: methylPREDNISolone sod succ/PF 40mg inj. IV SCH (07:54)
[2018-11-02] MEDS: piperacillin/tazo 3.375gm/50ml 50 ML IV SCH ×3 (08:09→23:15)
[2018-11-02] MEDS: aspirin 81mg tab.chew PO SCH (08:42)
[2018-11-02] MEDS: ondansetron/PF 4mg/2ml inj IV PRN ×2 (13:36→20:26)
[2018-11-02] MEDS: acetaminophen w/codeine (30MG) #3 tablet PO PRN ×2 (13:36→20:26)
--- NOTE | 2018-11-02 13:48 | NUR ---
Paged Dr Auguste: PAGER ID: [phone] MESSAGE: RE: Jia Ferguson 3016A. K 3.4, replacement d/c'd today, can we please restart replacement K per protocol. Thank you Rochelle Taylor x [phone]
--- NOTE | 2018-11-02 15:16 | NUR ---
Paged Dr Auguste: PAGER ID: [phone] MESSAGE: RE: Jia Marty [id number]. Pt c/o pain, unrelieved by Tylenol/codeine tablet. Can she have something stronger for pain, ie tramadol. thank you. Rochelle REYNA x [phone]
--- NOTE | 2018-11-02 15:55 | NUR ---
food service counter clerk consult re: patient's diet. 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 ammonia is currently WNL at 11. Patient is knowledgeable of which foods to avoid and meal planning. Obtained food preferences and d/w dietary. Addendum: 11/02/18 at [address] Amended: Links added.
[2018-11-02] MEDS ORDERED: traMADol 50MG tablet PO PRN (16:10)
--- NOTE | 2018-11-02 18:29 | NUR ---
Patient in room PCU 3016. I have received report from Diony/Rochelle and had the opportunity to ask questions and assume patient care.
[2018-11-02] MEDS: insulin glargine (Lantus) pen - multi-dose SQ SCH (21:00)
[2018-11-02] MEDS ORDERED: warfarin 1mg tablet PO ONE (21:00)
[2018-11-03] VITALS (11 sets, daily range): BP systolic 94–139; BP diastolic 59–98
[2018-11-03] MEDS: ipratropium/albuterol 3ml nebule NEB SCH ×6 (03:48→23:05)
[2018-11-03] MEDS: lactulose 20gm/30ml cup PO SCH ×5 (04:00→19:31)
[2018-11-03 04:27] LABS: BASOPHILS % (AUTO) 0.2 % (0-1); EOSINOPHILS # (AUTO) 0.2 X10'3 (0-0.9); EOSINOPHILS % (AUTO) 1.4 % (0-6); HEMATOCRIT 31.3 % (35.0-45.0); HEMOGLOBIN 9.6 g/dl (12.0-16.0); LYMPHOCYTES # (AUTO) 0.8 X10'3 (1.1-4.8); LYMPHOCYTES % (AUTO) 7.8 % (21-51); MEAN CORPUSCULAR HEMOGLOBIN 28.4 PG (27.0-31.0); MEAN CORPUSCULAR HGB CONC 30.8 g/dL (33.0-36.5); MEAN CORPUSCULAR VOLUME 92.2 FL (78-98); MEAN PLATELET VOLUME 7.8 FL (7.4-10.4); MONOCYTES # (AUTO) 0.5 X10'3 (0-0.9); MONOCYTES % (AUTO) 4.3 % (2-12); NEUTROPHILS # (AUTO) 9.3 X10'3 (1.8-7.7); NEUTROPHILS % (AUTO) 86.3 % (42-75); PLATELET COUNT 186 X10'3 (140-440); RED BLOOD COUNT 3.39 X10'6 (4.20-5.60); RED CELL DISTRIBUTION WIDTH 19.6 % (11.5-14.5); WHITE BLOOD COUNT 10.8 X10'3 (4.5-11.0)
[2018-11-03 04:51] LABS: ANION GAP 2 (8-16); BLOOD UREA NITROGEN 8 MG/DL (7-18); BUN/CREATININE RATIO 11.3 (6.6-38.0); CHLORIDE 104 MMOL/L (99-107); CREATININE 0.71 MG/DL (0.40-0.90); GLUCOSE 105 MG/DL (70-104); SODIUM 140 MMOL/L (135-145); TOTAL CARBON DIOXIDE 33.7 MMOL/L (24-32)
[2018-11-03 04:52] LABS: ALANINE AMINOTRANSFERASE 95 U/L (12-78); ALBUMIN 2.1 G/DL (3.4-5.0); ALBUMIN/GLOBULIN RATIO 0.6 (1.1-1.5); ALKALINE PHOSPHATASE 92 IU/L (46-116); ASPARTATE AMINO TRANSFERASE 32 U/L (10-37); BILIRUBIN,TOTAL 0.3 MG/DL (0.1-1.0); CALCIUM 8.3 MG/DL (8.5-10.1); MAGNESIUM 1.8 MG/DL (1.5-2.4); PHOSPHORUS 2.7 MG/DL (2.3-4.5); PREALBUMIN 16.4 MG/DL (19-36); TOTAL PROTEIN 5.8 G/DL (6.4-8.2); eGFR 85 ML/MIN
[2018-11-03] MEDS: acetaminophen w/codeine (30MG) #3 tablet PO PRN ×4 (05:38→23:08)
[2018-11-03] MEDS: ondansetron/PF 4mg/2ml inj IV PRN ×3 (05:41→20:59)
--- NOTE | 2018-11-03 06:16 | NUR ---
Problems reprioritized. Patient report given, questions answered & plan of care reviewed with Geovany.
[2018-11-03 06:24] LABS: ANISOCYTOSIS 2+; HYPERSEGMENTED NEUTROPHILS FEW; PLATELET ESTIMATE NORMAL; TOTAL CELLS COUNTED 100
[2018-11-03 06:26] LABS: HYPOCHROMASIA 2+
[2018-11-03 06:28] LABS: TOXIC GRANULATION 1+
[2018-11-03] MEDS: topiramate 100mg tablet PO SCH ×2 (07:59→19:30)
[2018-11-03] MEDS: pantoprazole 40mg Tablet.DR PO SCH (07:59)
[2018-11-03] MEDS: lisinopril 10 MG tablet PO SCH (08:00)
[2018-11-03] MEDS: methylPREDNISolone sod succ/PF 40mg inj. IV SCH (08:00)
[2018-11-03] MEDS: lactobacillus rhamnosus 10,000 MMU CELLS/CAPSULE PO SCH ×2 (08:00→19:30)
[2018-11-03] MEDS: levetiracetam 250mg tablet PO SCH ×2 (08:00→19:30)
[2018-11-03] MEDS: piperacillin/tazo 3.375gm/50ml 50 ML IV SCH ×2 (08:01→16:27)
[2018-11-03] MEDS: furosemide 40mg/4ml inj IV SCH ×2 (08:01→19:31)
[2018-11-03] MEDS: aspirin 81mg tab.chew PO SCH (08:19)
[2018-11-03] MEDS: atorvastatin 20mg tablet PO SCH (08:19)
--- NOTE | 2018-11-03 08:44 | NUR ---
PAGER ID: [phone] MESSAGE: RE: Jia Ferguson, room 3016A. Morning BP 110/75. I gave morning IV Lasix and held lisinopril and Toprol. Nursing yesterday held Morning BP meds. -[facility] #[id number] Paged , Dr. Auguste concerning Pts morning BP meds
[2018-11-03] MEDS: metoprolol succinate 25mg (24-HOUR) SR. Tablet PO SCH (10:03)
--- NOTE | 2018-11-03 18:15 | NUR ---
Problems reprioritized. Patient report given, questions answered & plan of care reviewed with Alanna REYNA.
--- NOTE | 2018-11-03 18:38 | NUR ---
Patient in room PCU 3016. I have received report from Geovany REYNA and had the opportunity to ask questions and assume patient care.
[2018-11-03] MEDS: insulin glargine (Lantus) pen - multi-dose SQ SCH (21:00)
[2018-11-03] MEDS ORDERED: warfarin 1mg tablet PO ONE (21:00)
[2018-11-04] MEDS: piperacillin/tazo 3.375gm/50ml 50 ML IV SCH ×4 (00:15→23:38)
[2018-11-04 02:00] VITALS: BP 95/62
[2018-11-04] MEDS: ipratropium/albuterol 3ml nebule NEB SCH ×6 (03:13→23:03)
[2018-11-04] MEDS: lactulose 20gm/30ml cup PO SCH ×7 (04:00→23:38)
[2018-11-04] MEDS: acetaminophen w/codeine (30MG) #3 tablet PO PRN ×3 (05:39→19:34)
[2018-11-04 06:00] VITALS: BP 91/52
--- NOTE | 2018-11-04 06:16 | NUR ---
Problems reprioritized. Patient report given, questions answered & plan of care reviewed with Geovany REYNA.
--- NOTE | 2018-11-04 06:20 | NUR ---
Patient in room PCU 3016. I have received report from Alanna REYNA and had the opportunity to ask questions and assume patient care.
[2018-11-04 06:59] LABS: INR 1.7 INR
[2018-11-04] MEDS: lisinopril 10 MG tablet PO SCH (08:00)
[2018-11-04] MEDS: furosemide 40mg/4ml inj IV SCH ×2 (08:00→19:36)
--- NOTE | 2018-11-04 08:03 | NUR ---
PAGER ID: [phone] MESSAGE: RE: Jia Ferguson, room: [facility]. No Morning labs were ordered for Pt. Do you want me to put order in for CBC and BMP or CMP? Thank you. -Geovany [facility] #[phone] paged concerning lab orders on Pt
[2018-11-04] MEDS: methylPREDNISolone sod succ/PF 40mg inj. IV SCH (08:40)
[2018-11-04] MEDS: levetiracetam 250mg tablet PO SCH ×2 (08:41→19:34)
[2018-11-04] MEDS: lactobacillus rhamnosus 10,000 MMU CELLS/CAPSULE PO SCH ×2 (08:41→19:34)
[2018-11-04] MEDS: topiramate 100mg tablet PO SCH ×2 (08:41→19:34)
[2018-11-04] MEDS: atorvastatin 20mg tablet PO SCH (08:41)
[2018-11-04] MEDS: pantoprazole 40mg Tablet.DR PO SCH (08:41)
[2018-11-04] MEDS: aspirin 81mg tab.chew PO SCH (08:42)
--- NOTE | 2018-11-04 09:53 | NUR ---
PAGER ID: [phone] MESSAGE: Re: Jia Ferguson, room: [facility]. Pts morning BP 91/52. Held Morning dose of Lasix, Lisinopril and Metoprolol. -Geovany [facility] #[phone] -MD paged concerning Pts morning BP and Morning BP meds
[2018-11-04 11:11] VITALS: BP 146/83
[2018-11-04 12:26] LABS: BASOPHILS % (AUTO) 0.3 % (0-1); EOSINOPHILS % (AUTO) 0.4 % (0-6); HEMATOCRIT 32.5 % (35.0-45.0); HEMOGLOBIN 10.2 g/dl (12.0-16.0); LYMPHOCYTES # (AUTO) 0.5 X10'3 (1.1-4.8); LYMPHOCYTES % (AUTO) 4.5 % (21-51); MEAN CORPUSCULAR HEMOGLOBIN 28.6 PG (27.0-31.0); MEAN CORPUSCULAR HGB CONC 31.4 g/dL (33.0-36.5); MEAN CORPUSCULAR VOLUME 90.8 FL (78-98); MEAN PLATELET VOLUME 8.1 FL (7.4-10.4); MONOCYTES # (AUTO) 0.1 X10'3 (0-0.9); MONOCYTES % (AUTO) 1.4 % (2-12); NEUTROPHILS # (AUTO) 9.6 X10'3 (1.8-7.7); NEUTROPHILS % (AUTO) 93.4 % (42-75); PLATELET COUNT 209 X10'3 (140-440); RED BLOOD COUNT 3.58 X10'6 (4.20-5.60); RED CELL DISTRIBUTION WIDTH 19.9 % (11.5-14.5); WHITE BLOOD COUNT 10.3 X10'3 (4.5-11.0)
[2018-11-04 12:39] LABS: ALANINE AMINOTRANSFERASE 93 U/L (12-78); ALBUMIN 2.5 G/DL (3.4-5.0); ALBUMIN/GLOBULIN RATIO 0.6 (1.1-1.5); ALKALINE PHOSPHATASE 101 IU/L (46-116); ANION GAP 5 (8-16); ASPARTATE AMINO TRANSFERASE 33 U/L (10-37); BILIRUBIN,TOTAL 0.4 MG/DL (0.1-1.0); BLOOD UREA NITROGEN 10 MG/DL (7-18); BUN/CREATININE RATIO 9.7 (6.6-38.0); CALCIUM 8.4 MG/DL (8.5-10.1); CHLORIDE 103 MMOL/L (99-107); CREATININE 1.03 MG/DL (0.40-0.90); GLUCOSE 156 MG/DL (70-104); POTASSIUM 4.1 MMOL/L (3.5-5.1); SODIUM 138 MMOL/L (135-145); TOTAL CARBON DIOXIDE 30.5 MMOL/L (24-32); TOTAL PROTEIN 6.7 G/DL (6.4-8.2); eGFR 55 ML/MIN
[2018-11-04] MEDS: metoprolol succinate 25mg (24-HOUR) SR. Tablet PO SCH (12:50)
[2018-11-04] MEDS: ondansetron/PF 4mg/2ml inj IV PRN ×2 (13:02→19:41)
[2018-11-04 15:00] VITALS: BP 115/74
[2018-11-04 18:00] VITALS: BP 121/77
--- NOTE | 2018-11-04 18:15 | NUR ---
Problems reprioritized. Patient report given, questions answered & plan of care reviewed with Janey REYNA .
--- NOTE | 2018-11-04 19:10 | NUR ---
Patient in room PCU 3016. I have received report from MARIBELL Armenta and had the opportunity to ask questions and assume patient care.
[2018-11-04] MEDS: hydrOXYzine 25 MG tablet PO PRN (19:41)
[2018-11-04] MEDS: insulin glargine (Lantus) pen - multi-dose SQ SCH (21:00)
[2018-11-04] MEDS ORDERED: warfarin 3mg tablet PO ONE (21:00)
[2018-11-04 22:00] VITALS: BP 108/74
[2018-11-05 02:00] VITALS: BP 112/75
[2018-11-05] MEDS: ipratropium/albuterol 3ml nebule NEB SCH ×5 (02:50→20:11)
[2018-11-05] MEDS: lactulose 20gm/30ml cup PO SCH ×5 (04:00→20:00)
[2018-11-05 06:00] VITALS: BP 105/65
--- NOTE | 2018-11-05 06:20 | NUR ---
Patient in room PCU 3016. I have received report from Janey REYNA and had the opportunity to ask questions and assume patient care.
--- NOTE | 2018-11-05 06:21 | NUR ---
Problems reprioritized. Patient report given, questions answered & plan of care reviewed with MARIBELL Armenta.
[2018-11-05] MEDS: piperacillin/tazo 3.375gm/50ml 50 ML IV SCH (07:59)
[2018-11-05] MEDS: methylPREDNISolone sod succ/PF 40mg inj. IV SCH (07:59)
[2018-11-05] MEDS: pantoprazole 40mg Tablet.DR PO SCH (07:59)
[2018-11-05] MEDS: aspirin 81mg tab.chew PO SCH (08:00)
[2018-11-05] MEDS: levetiracetam 250mg tablet PO SCH ×2 (08:00→19:56)
[2018-11-05] MEDS: metoprolol succinate 25mg (24-HOUR) SR. Tablet PO SCH (08:00)
[2018-11-05] MEDS: lactobacillus rhamnosus 10,000 MMU CELLS/CAPSULE PO SCH ×2 (08:00→19:56)
[2018-11-05] MEDS: topiramate 100mg tablet PO SCH ×2 (08:00→19:56)
[2018-11-05] MEDS: lisinopril 10 MG tablet PO SCH (08:00)
[2018-11-05] MEDS: furosemide 40mg/4ml inj IV SCH ×2 (08:00→19:59)
[2018-11-05] MEDS: atorvastatin 20mg tablet PO SCH (08:00)
[2018-11-05 09:15] LABS: BASOPHILS # (AUTO) 0.1 X10'3 (0-0.2); BASOPHILS % (AUTO) 0.8 % (0-1); EOSINOPHILS # (AUTO) 0.1 X10'3 (0-0.9); EOSINOPHILS % (AUTO) 1.1 % (0-6); HEMATOCRIT 31.2 % (35.0-45.0); HEMOGLOBIN 9.7 g/dl (12.0-16.0); LYMPHOCYTES % (AUTO) 10.6 % (21-51); MEAN CORPUSCULAR HEMOGLOBIN 28.4 PG (27.0-31.0); MEAN CORPUSCULAR HGB CONC 31.1 g/dL (33.0-36.5); MEAN CORPUSCULAR VOLUME 91.5 FL (78-98); MEAN PLATELET VOLUME 8.4 FL (7.4-10.4); MONOCYTES # (AUTO) 0.5 X10'3 (0-0.9); MONOCYTES % (AUTO) 5.6 % (2-12); NEUTROPHILS # (AUTO) 7.8 X10'3 (1.8-7.7); NEUTROPHILS % (AUTO) 81.9 % (42-75); PLATELET COUNT 191 X10'3 (140-440); RED BLOOD COUNT 3.41 X10'6 (4.20-5.60); RED CELL DISTRIBUTION WIDTH 20.3 % (11.5-14.5); WHITE BLOOD COUNT 9.6 X10'3 (4.5-11.0)
[2018-11-05 09:22] LABS: ALANINE AMINOTRANSFERASE 81 U/L (12-78); ALBUMIN 2.4 G/DL (3.4-5.0); ALBUMIN/GLOBULIN RATIO 0.6 (1.1-1.5); ALKALINE PHOSPHATASE 90 IU/L (46-116); ANION GAP 1 (8-16); ASPARTATE AMINO TRANSFERASE 26 U/L (10-37); BILIRUBIN,TOTAL 0.3 MG/DL (0.1-1.0); BLOOD UREA NITROGEN 13 MG/DL (7-18); BUN/CREATININE RATIO 14.9 (6.6-38.0); CALCIUM 8.6 MG/DL (8.5-10.1); CHLORIDE 104 MMOL/L (99-107); CREATININE 0.87 MG/DL (0.40-0.90); GLUCOSE 96 MG/DL (70-104); POTASSIUM 4.4 MMOL/L (3.5-5.1); SODIUM 139 MMOL/L (135-145); TOTAL CARBON DIOXIDE 33.7 MMOL/L (24-32); TOTAL PROTEIN 6.2 G/DL (6.4-8.2); eGFR 67 ML/MIN
[2018-11-05 09:25] LABS: INR 1.5 INR
[2018-11-05 10:02] LABS: ANISOCYTOSIS 3+; PLATELET ESTIMATE NORMAL; POIKILOCYTOSIS FEW; SCHISTOCYTES FEW
[2018-11-05] MEDS: acetaminophen w/codeine (30MG) #3 tablet PO PRN ×3 (10:15→19:59)
[2018-11-05] MEDS: ondansetron/PF 4mg/2ml inj IV PRN ×2 (10:15→16:28)
--- NOTE | 2018-11-05 10:53 | NUR ---
PAGER ID: [phone] MESSAGE: [id number] RESENDIZ family is driving from [place] to pick her up and wants to know discharge status / time? I see it is still pending. Thank you [phone]
[2018-11-05 11:00] VITALS: BP 108/68
[2018-11-05 14:00] VITALS: BP 119/72
[2018-11-05] MEDS ORDERED: iohexol 350MG/ML 100ml bottle IV ONE (14:19)
--- NOTE | 2018-11-05 14:55 | NUR ---
reassessment: Pt PO 100% healthy/mechanical soft grind all meals meeting needs. LBM 11/04. No nutrition concerns at this time. Recommend: 1. Continue with heart healthy, mechanical soft diet with ground meats. 2. routine bowel care 3. wt per rx Addendum: 11/05/18 at [address] Amended: Links added. Addendum: 11/05/18 at [address] F/u: Pt on ground meats only requesting chopped meats and can tolerate per pt and RN; AURY d/w dietary to send [facility] soft chopped meats. reassessment: Pt PO 100% healthy/mechanical soft grind all meats meeting needs. LBM 11/04. No nutrition concerns at this time. Recommend: 1. Continue with heart healthy, mechanical soft diet with ground meats. 2. routine bowel care 3. wt per rx
--- NOTE | 2018-11-05 18:00 | NUR ---
Problems reprioritized. Patient report given, questions answered & plan of care reviewed with Rinku REYNA .
--- NOTE | 2018-11-05 18:40 | NUR ---
Patient in room PCU 3016N. I have received report from Geovany REYNA and had the opportunity to ask questions and assume patient care
--- NOTE | 2018-11-05 20:55 | NUR ---
Ana Liliant transfered to [facility] via [facility]. Report given to Pilar on reason for pt transfer [facility]
[2018-11-05] MEDS ORDERED: warfarin 4mg tablet PO ONE (21:00)
== END 2018-11-05 20:58 | disposition short-term general hospital (02) | DRG 130 ==
LOC: ER 17:20 → PCU 3S 10-18 07:00 → CMPBEDREQ 10-18 07:02 → ICU 2S 10-20 09:30 → PCU 3S 10-25 12:08
PROVIDERS: ADMIT Hospitalist; ATTEND Internal Medicine
PROC: B32T1ZZ Computerized Tomography (CT Scan) of Left Pulmonary Artery using Low Osmolar Contrast (ICD-10-PCS; 2018-10-17)
PROC: B3201ZZ Computerized Tomography (CT Scan) of Thoracic Aorta using Low Osmolar Contrast (ICD-10-PCS; 2018-10-17)
PROC: B32S1ZZ Computerized Tomography (CT Scan) of Right Pulmonary Artery using Low Osmolar Contrast (ICD-10-PCS; 2018-10-17)
PROC: 5A1955Z Respiratory Ventilation, Greater than 96 Consecutive Hours (ICD-10-PCS; principal; 2018-10-20)
PROC: 0BH17EZ Insertion of Endotracheal Airway into Trachea, Via Natural or Artificial Opening (ICD-10-PCS; 2018-10-20)
PROC: 5A09357 Assistance with Respiratory Ventilation, Less than 24 Consecutive Hours, Continuous Positive Airway Pressure (ICD-10-PCS; 2018-10-20)
PROC: 30233K1 Transfusion of Nonautologous Frozen Plasma into Peripheral Vein, Percutaneous Approach (ICD-10-PCS; 2018-10-20)
PROC: 06HY33Z Insertion of Infusion Device into Lower Vein, Percutaneous Approach (ICD-10-PCS; 2018-10-20)
PROC: 4A10X4Z Monitoring of Central Nervous Electrical Activity, External Approach (ICD-10-PCS; 2018-10-21)
PROC: 5A09357 Assistance with Respiratory Ventilation, Less than 24 Consecutive Hours, Continuous Positive Airway Pressure (ICD-10-PCS; 2018-10-26)
PROC: 5A09357 Assistance with Respiratory Ventilation, Less than 24 Consecutive Hours, Continuous Positive Airway Pressure (ICD-10-PCS; 2018-10-27)
PROC: 5A09357 Assistance with Respiratory Ventilation, Less than 24 Consecutive Hours, Continuous Positive Airway Pressure (ICD-10-PCS; 2018-10-28)
PROC: 0W9B3ZZ Drainage of Left Pleural Cavity, Percutaneous Approach (ICD-10-PCS; 2018-10-28)
PROC: 0W993ZZ Drainage of Right Pleural Cavity, Percutaneous Approach (ICD-10-PCS; 2018-10-28)
PROC: 5A09357 Assistance with Respiratory Ventilation, Less than 24 Consecutive Hours, Continuous Positive Airway Pressure (ICD-10-PCS; 2018-10-29)
PROC: 5A09357 Assistance with Respiratory Ventilation, Less than 24 Consecutive Hours, Continuous Positive Airway Pressure (ICD-10-PCS; 2018-10-30)
PROC: 5A09357 Assistance with Respiratory Ventilation, Less than 24 Consecutive Hours, Continuous Positive Airway Pressure (ICD-10-PCS; 2018-10-31)
PROC: 5A09357 Assistance with Respiratory Ventilation, Less than 24 Consecutive Hours, Continuous Positive Airway Pressure (ICD-10-PCS; 2018-11-01)
PROC: B3251ZZ Computerized Tomography (CT Scan) of Bilateral Common Carotid Arteries using Low Osmolar Contrast (ICD-10-PCS; 2018-11-05)
PROC: B3281ZZ Computerized Tomography (CT Scan) of Bilateral Internal Carotid Arteries using Low Osmolar Contrast (ICD-10-PCS; 2018-11-05)
DX: J69.0 Pneumonitis due to inhalation of food and vomit (principal); I63.9 Cerebral infarction, unspecified; I21.A1 Myocardial infarction type 2; R57.9 Shock, unspecified; I50.43 Acute on chronic combined systolic (congestive) and diastolic (congestive) heart failure; D68.51 Activated protein C resistance; E83.39 Other disorders of phosphorus metabolism; J96.02 Acute respiratory failure with hypercapnia; K72.90 Hepatic failure, unspecified without coma; E83.42 Hypomagnesemia; E87.2 Acidosis; E87.5 Hyperkalemia; J91.8 Pleural effusion in other conditions classified elsewhere; Z99.11 Dependence on respirator [ventilator] status; N17.9 Acute kidney failure, unspecified; G81.94 Hemiplegia, unspecified affecting left nondominant side; G40.901 Epilepsy, unspecified, not intractable, with status epilepticus; I25.10 Atherosclerotic heart disease of native coronary artery without angina pectoris; F15.10 Other stimulant abuse, uncomplicated; D64.9 Anemia, unspecified; E87.6 Hypokalemia; E11.9 Type 2 diabetes mellitus without complications; F17.200 Nicotine dependence, unspecified, uncomplicated; G47.33 Obstructive sleep apnea (adult) (pediatric); G89.29 Other chronic pain; R00.0 Tachycardia, unspecified; J44.1 Chronic obstructive pulmonary disease with (acute) exacerbation; Z79.01 Long term (current) use of anticoagulants; Z86.718 Personal history of other venous thrombosis and embolism; Z91.14 Patient's other noncompliance with medication regimen; Z95.828 Presence of other vascular implants and grafts; Z99.81 Dependence on supplemental oxygen; Z88.2 Allergy status to sulfonamides; Z88.8 Allergy status to other drugs, medicaments and biological substances; Z79.899 Other long term (current) drug therapy; Z71.6 Tobacco abuse counseling
CPT/HCPCS: 32555; 36415; 36600; 70450; 70496; 70498; 70544; 70547; 70551; 71045; 71275; 72148; 80048; 80053; 80061; 80069; 80177; 80202; 80305; 81001; 81003; 82140; 82550; 82803; 82945; 82948; 83605; 83615; 83735; 83880; 83986; 84100; 84134; 84145; 84157; 84484; 85018; 85025; 85610; 85730; 86870; 86885; 86900; 86901; 86902; 86905; 87040; 87070; 87077; 87185; 89051; 92508; 92616; 92950; 93005; 93306; 93930; 94002; 94003; 94640; 94660; 94760; 95816; 96374; 96375; 97110; 97116; 97162; 97530; 99285; C9113; G0378; J0610; J1200; J1644; J1650; J1815; J1940; J1953; J2001; J2060; J2250; J2270; J2405; J2543; J2920; J2930; J3370; J3410; J3430; J3490; J7030; P9045; P9059; Q0177; Q9967